=== PATIENT | male | born 1940 | race Caucasian/White ===

== ENCOUNTER 2023-12-16 11:16 | Outpatient (AMB) | payer MEDICARE, OTHER, SELFPAY ==
--- NOTE | 2023-12-16 11:24 | A.OFFVIS_ITS ---
Vital Signs 12/16/23 11:32 Height 5 ft 8 in Weight 184 lb BMI 28.0 BP 124/68 Blood Pressure Location Rt brachial Position Sitting Respiration 16 Pulse 82 Pulse Source Pulse Oximeter Pulse Oximetry (%) 96 Oxygen Delivery Method Room Air Intake Visit Reasons: [id number] Intake Note: Pt presents as new patient for consultation for Parkinson's. Oil Distributor Required: No Allergies levofloxacin [From Levaquin] Allergy (Mild, Verified 12/16/23 11:26) Unknown Penicillins Allergy (Mild, Verified 12/16/23 11:26) Unknown Medication List - Last Reconciled 12/16/23 by Samantha Brothers MD carbidopa-levodopa 25-100 mg 3 tabs PO TID finasteride 5 mg PO DAILY lisinopril 20 mg PO DAILY meclizine 25 mg PO DAILY PRN simvastatin 40 mg PO DAILY HPI Comments Details: 83y/o Right handed male comes for further management of Parkinsons disease. He is accompanied by his daughter Nikki. He was diagnosed in 2020 - when he presented with right hand tremors and coordinations problems. He was seen at [facility] and was diagnosed with patkinsons disease. He was started on carbidopa/levodopa and currently he is on 3tabs tid. The tremors are mostly at rest .He has trouble eating and writing. memory is good. Sleep is ok . he denies nightmares, vivid dreams , REM behavior disorder. His mood is Ok and he is motivated. He has mild voice changes but no drooling . He has mild difficulty with hand writing, using utensils, dressing , needs help with shower. About 3 months ago he had vomiting and was taken to ER - for ileus , transferred to [facility]. the history is not clear - had pneumonia and was intubated. His gait is slow and mildly off balance since then he has home PT and VNA No dizziness , no double vision . He has constipation and mild urgency [facility] Medical History (Updated 12/16/23 @ 12:06 by Samantha Brothers MD) Parkinson's disease without dyskinesia Ileus Back pain BPH (benign prostatic hyperplasia) Diabetes HTN (hypertension) Surgical History H/O knee surgery History of back surgery Family History Father HTN (hypertension) Diabetes mellitus Malignant tumor of prostate Mother Diabetes mellitus, Onset Age: 90 Social History Household Members: Children Housing: House Alcohol intake: never Patient Tobacco Use Status: Never used Tobacco Physical Exam Vital Signs: Last Vital Signs Pulse 82 12/16/23 11:32 Resp 16 12/16/23 11:32 BP 124/68 12/16/23 11:32 Pulse Ox 96 12/16/23 11:32 Oxygen Delivery Method Room Air 12/16/23 11:32 BMI result Body Mass Index 28.0 Const General: cooperative, healthy appearing and no acute distress Nutritional Appearance: obese Orientation/consciousness: patient oriented x3 HEENT Head: Yes normal to inspection Neck Other: mild antecollis and restricted range of motion Neuro Other: Mild decreased blink and facial expression Voice- normal Right UE intermittent mild amplitude rest tremors Fine Finger movement- decreased chilango l>R Alternating hand movements - decreased chilango Hand movements - decreased chilango Foot taps- decreased chilango No cog wheel rigidity gait - stooped, mild slowness and high step gait General: patient oriented x3 and no focal motor deficits Cranial nerves: Yes CN's II-XII intact bilaterally, Yes Bilaterally intact EOM present, Yes Normal facial strength present and Yes Midline tongue present Cognition (Neuro): normal cognition Motor exam (neuro): 5/5 motor strength present throughout and Normal motor muscle tone present throughout Deep tendon reflexes (DTR's): Right triceps reflex intensity grade: 1+, Left triceps reflex intensity grade: 1+, Rt Biceps (C5, C6): 1+, Left biceps reflex intensity grade: 1+, Right brachioradialis reflex intensity grade: 1+, Left brachioradialis reflex intensity grade: 1+, Right patellar reflex intensity grade: 1+ and Left patellar reflex intensity grade: 1+ Coordination: [id number] test normal Assessment & Plan Assessment & Plan (1) Parkinson's disease without dyskinesia: Code(s): G20.A1 - Parkinson's disease without dyskinesia, without mention of fluctuations Category: Medical Plan Discussed diagnosis in detail . Continue sinemet 25/100 3tabs tid ( or 3-2-2-2-) Continue PT OT consider GI for follow up of ileus. Coding Level of Care Code New Pt Level 4 (26297) Diagnoses Parkinson's disease without dyskinesia G20.A1
[2023-12-16 11:32] VITALS: BP 124/68; PULSE 82; RESP 16; O2SAT 96; BMI 28.0
== END 2023-12-16 12:14 | disposition home or self-care (01) ==
PROVIDERS: PCP Family Medicine; Visit Provider Psychiatry & Neurology Neurology
DX: G20.A1 Parkinson's disease without dyskinesia, without mention of fluctuations (principal)
CPT/HCPCS: 99204

== ENCOUNTER → 2023-12-16 11:16 | Outpatient (BNVA) | payer MEDICARE, OTHER, SELFPAY | PROVIDERS: PCP Family Medicine; Visit Provider Psychiatry & Neurology Neurology | DX: G20.A1 Parkinson's disease without dyskinesia, without mention of fluctuations (principal); Z79.899 Other long term (current) drug therapy | CPT/HCPCS: 99202 ==

== ENCOUNTER 2024-11-19 12:43 | Outpatient (AMB) | payer MEDICARE, OTHER, SELFPAY ==
[2024-11-19 12:51] VITALS: BP 150/80; PULSE 86; O2SAT 98; BMI 29.0
--- NOTE | 2024-11-19 12:51 | A.OFFVIS_ITS ---
Vital Signs 11/19/24 12:51 Height 5 ft 8 in Weight 190 lb 8 oz BMI 29.0 BP 150/80 H Blood Pressure Location Rt brachial Position Sitting Pulse 86 Pulse Source Pulse Oximeter Pulse Oximetry (%) 98 Oxygen Delivery Method Room Air Intake Visit Reasons: 6 Month [phone] Intake Note: Patient presents for follows up parkinsons Allergies levofloxacin [From Levaquin] Allergy (Mild, Verified 11/19/24 12:54) Unknown Penicillins Allergy (Mild, Verified 11/19/24 12:54) Unknown Medication List - Last Reconciled 11/19/24 by Samantha Brothers MD carbidopa-levodopa 25-100 mg 3 tabs PO TID finasteride 5 mg PO DAILY lisinopril 20 mg PO DAILY meclizine 25 mg PO DAILY PRN simvastatin 40 mg PO DAILY HPI Comments Details: 84y/o Right handed male comes for follow up of Parkinsons disease. He is accompanied by his daughter Nikki. He feels he is stable only a mild progression of symptoms- slower than before. He was diagnosed in 2020 - when he presented with right hand tremors and coordinations problems. He was seen at [facility] and was diagnosed with patkinsons disease. He is on carbidopa/levodopa 3tabs tid. The tremors are mostly at rest .He has trouble eating and writing at times memory - has some short term difficulties Sleep is ok . he denies nightmares, vivid dreams , REM behavior disorder. His mood is Ok and he is motivated. He has mild voice changes but no drooling . He has mild difficulty with hand writing, using utensils, dressing , shower. - slower No constipation No dizziness , no double vision . No hallucinations He recently had procedure for kidney stones. [facility] Medical History Parkinson's disease without dyskinesia Ileus Back pain BPH (benign prostatic hyperplasia) Diabetes HTN (hypertension) Surgical History H/O knee surgery History of back surgery Family History Father HTN (hypertension) Diabetes mellitus Malignant tumor of prostate Mother Diabetes mellitus, Onset Age: 90 Social History Household Members: Children Housing: House Alcohol intake: never Patient Tobacco Use Status: Never used Tobacco Physical Exam Vital Signs: Last Vital Signs Pulse 86 11/19/24 12:51 BP 150/80 H 11/19/24 12:51 Pulse Ox 98 11/19/24 12:51 Oxygen Delivery Method Room Air 11/19/24 12:51 BMI result Body Mass Index 29.0 Const General: cooperative, healthy appearing and no acute distress Nutritional Appearance: obese Orientation/consciousness: patient oriented x3 HEENT Head: Yes normal to inspection Neck Other: mild antecollis and restricted range of motion Neuro Other: Mild decreased blink and facial expression Voice- normal no tremors today Fine Finger movement- decreased chilango l>R Alternating hand movements - decreased chilango Hand movements - decreased chilango Foot taps- decreased chilango No cog wheel rigidity gait - stooped,walker mild slowness and high step gait ( residual foot droP from back surgery) General: patient oriented x3 and no focal motor deficits Cranial nerves: Yes CN's II-XII intact bilaterally, Yes Bilaterally intact EOM present, Yes Normal facial strength present and Yes Midline tongue present Cognition (Neuro): normal cognition Motor exam (neuro): 5/5 motor strength present throughout and Normal motor muscle tone present throughout Coordination: [id number] test normal Assessment & Plan Assessment & Plan (1) Parkinson's disease without dyskinesia: Code(s): G20.A1 - 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
--- OUTSIDE RECORDS SUMMARY | 2024-11-19 14:38 | XMS_ITS | Encounter Summary ---
Author Organization [facility] Address [address] [place] [address] Care Team Providers Care Custom Feed Mill Operator Name Role Phone Mike Tobin MD Primary Care Provider [phone] Encounter Details Date Type Department Care Team (Late st Contact Info) Description 08/18/2024 Lab Requisition [facility] - Main Lab [address] [place] [address] Say Louie MD [address] [place] [address] Calculus of kidney Social History Tobacco Use Types Packs/Day Years Used Date Smoking Tobacco: Never Assessed Sex and Gender Information Value Date Recorded Sex Assigned at Not on file Legal Sex Male 1:32 PM EDT Gender Identity Not on file Sexual Orientation Not on file documented as of this encounter Plan of Treatment Not on file documented as of this encounter Procedures Procedure Name Priority Date/Time Associated Diagnosis Comments STONE ANALYSIS Routine 08/18/2024 12:00 AM EDT Calculus of kidney documented in this encounter Results * Stone analysis (08/18/2024 12:00 AM EDT) Component(s) See below 08/25/2024 8:07 AM EDT [facility] Comment: 75% Uric acid anhydrous 25% Sodium urate Stone Weight 0.0059 g 08/25/2024 8:07 AM EDT [facility] Comment: This test was developed and its performance characteristics determined by [facility] in a manner consistent with CLIA requirements. This test has not been cleared or approved by the U.S. Food and Drug Administration. Test performed at [facility], [address] , [place], [place] ??[address] ? [phone] Angie Singh MD, PhD - Rivet Tosser Calculus 08/18/2024 08/18/2024 1:3 6 PM EDT us Say Louie MD LAB BODY FLUIDS AND STOOLS ORDER BRETT Final Result [facility] [address] [place] [address] documented in this encounter Visit Diagnoses Diagnosis Calculus of kidney documented in this encounter Care Teams Custom Feed Mill Operator Relationship Specialty Start Date End Date Mike Tobin MD [address] [place] [address] PCP - General Family Medicine 07/29/24 documented as of this encounter
== END 2024-11-19 13:23 | disposition home or self-care (01) ==
LOC: HO.HSMS 12:44
PROVIDERS: Visit Provider Psychiatry & Neurology Neurology
DX: G20.A1 Parkinson's disease without dyskinesia, without mention of fluctuations (principal)
CPT/HCPCS: 99214

== ENCOUNTER → 2024-11-19 12:43 | Outpatient (BNVA) | payer MEDICARE, OTHER, SELFPAY | PROVIDERS: Visit Provider Psychiatry & Neurology Neurology | DX: G20.A1 Parkinson's disease without dyskinesia, without mention of fluctuations (principal) | CPT/HCPCS: 99212 ==

== ENCOUNTER → 2024-12-28 23:59 | Outpatient (BNV) | payer MEDICARE, OTHER, SELFPAY | PROVIDERS: Visit Provider Psychiatry & Neurology Neurology | DX: G20.A1 Parkinson's disease without dyskinesia, without mention of fluctuations (principal); I10 Essential (primary) hypertension; E11.9 Type 2 diabetes mellitus without complications | CPT/HCPCS: G0180 ==

== ENCOUNTER 2025-05-24 12:50 | Outpatient (AMB) | payer MEDICARE, OTHER, SELFPAY ==
[2025-05-24 12:54] VITALS: BP 132/78; PULSE 95; O2SAT 95; BMI 29.8
--- NOTE | 2025-05-24 12:54 | MHC.OFFVIS ---
Vital Signs 05/24/25 12:54 Height 5 ft 8 in Weight 196 lb 2 oz BMI 29.8 BP 132/78 Blood Pressure Location Rt brachial Position Sitting Pulse 95 Pulse Source Pulse Oximeter Pulse Oximetry (%) 95 Oxygen Delivery Method Room Air Intake Visit Reasons: 6 mo follow up Intake Note: Follow up Parkinson's disease without dyskinesia, without mention of fluctuations Casting Molder Required: No Accompanied by: Daughter Allergies levofloxacin (From Levaquin) Allergy (Mild, Verified 05/24/25 12:54) Unknown Penicillins Allergy (Mild, Verified 05/24/25 12:54) Unknown Medication List - Last Reconciled 05/24/25 by Samantha Brothers MD carbidopa-levodopa 25-100 mg 3 tabs PO TID finasteride 5 mg PO DAILY lisinopril 20 mg PO DAILY meclizine 25 mg PO DAILY PRN simvastatin 40 mg PO DAILY HPI Comments Details: 84y/o Right handed male comes for follow up of Parkinsons disease. He is accompanied by his daughter Nikki. He feels he is stable only a mild progression of symptoms- slower than before.No falls No hallucinations.No dizziness. He was diagnosed in 2020 - when he presented with right hand tremors and coordinations problems. He was seen at [facility] and was diagnosed with patkinsons disease. He is on carbidopa/levodopa 3tabs tid. The tremors are mostly at rest .He has trouble eating and writing at times memory - has some short term difficulties Sleep is ok . he denies nightmares, vivid dreams , REM behavior disorder. His mood is Ok and he is motivated. He has mild voice changes but no drooling . He has mild difficulty with hand writing, using utensils, dressing , shower. - slower No constipation PFSH Medical History Parkinson's disease without dyskinesia Ileus Back pain BPH (benign prostatic hyperplasia) Diabetes HTN (hypertension) Surgical History H/O knee surgery History of back surgery Family History Father HTN (hypertension) Diabetes mellitus Malignant tumor of prostate Mother Diabetes mellitus, Onset Age: 90 Social History Household Members: Children Housing: House Alcohol intake: never Patient Tobacco Use Status: Never used Tobacco Physical Exam Vital Signs: Last Vital Signs Pulse 95 05/24/25 12:54 BP 132/78 05/24/25 12:54 Pulse Ox 95 05/24/25 12:54 Oxygen Delivery Method Room Air 05/24/25 12:54 BMI result Body Mass Index 29.8 Const General: cooperative, healthy appearing and no acute distress Nutritional Appearance: obese Orientation/consciousness: patient oriented x3 HEENT Head: Yes normal to inspection Neck Other: mild antecollis and restricted range of motion Neuro Other: Mild decreased blink and facial expression Voice- normal no tremors today Fine Finger movement- decreased chilango l>R Alternating hand movements - decreased chilango Hand movements - decreased chilango Foot taps- decreased chilango No cog wheel rigidity gait - stooped,walker mild slowness and high step gait ( residual foot droP from back surgery) General: patient oriented x3 and no focal motor deficits Cranial nerves: Yes CN's II-XII intact bilaterally, Yes Bilaterally intact EOM present, Yes Normal facial strength present and Yes Midline tongue present Cognition (Neuro): normal cognition Motor exam (neuro): 5/5 motor strength present throughout and Normal motor muscle tone present throughout Coordination: [id number] test normal Assessment & Plan Assessment & Plan (1) Parkinson's disease without dyskinesia: Code(s): G20.A1 - 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 Continue sinemet 25/100 3tabs tid continue regular exercise Medications: New carbidopa-levodopa 25-100 mg 3 tabs PO TID 810 tabs 3RF Coding Level of Care Code Est Pt Level 4 (31736) Add On Problem Visit Only Diagnoses Parkinson's disease without dyskinesia or fluctuating manifestations G20.A1 Fluctuating manifestations: without fluctuating manifestations
--- OUTSIDE RECORDS SUMMARY | 2025-05-24 18:30 | XMS_ITS | Encounter Summary ---
Author Organization [facility] Address [address] [place] [phone] Phone Care Team Providers Care Desk Operator Name Role Phone Mike Tobin MD, MPH Primary Care Provider + Mike Tobin MD, MPH Primary Care Provider + Encounter Details Date Type Department Care Team (Late st Contact Info) Description 10/02/2023 Procedure Pass [facility] Admitting Dept Virtual Department [address] [place] [address] Social History Tobacco Use Types Packs/Day Years Used Date Smoking Tobacco: Never Smokeless Tobacco: Never Alcohol Use Standard Drinks/Week Comments Not Currently 2 (1 standard drink = 0.6 oz pur e alcohol) rarely Education Answer Date Recorded Are you interested in more education? Not on hamida e 10/05/2022 Are you concerned about learning? Not on file 10/05/2022 No 10/05/2022 No 10/05/2022 Digital Access Answer Date Recorded No 11/04/2022 No 11/04/2022 Reliable internet access at home? Not on file 11/04/2022 Device with a working camera? Not on file Intimate Partner Violence Answer Date R ecorded Are you denied basic needs s uch as food, clothing, or medical care? Deferred 10/03/2023 In the past 12 months have y ou been in a relationship with a person who hurts, threatens, or tries to control you? Deferred 10/03/2023 Are you denied basic needs s uch as food, clothing, or medical care? Deferred 10/03/2023 In the past 12 months have y ou been in a relationship with a person who hurts, threatens, or tries to control you? Deferred 10/03/2023 Sex and Gender Information Value Date Recorded Sex Assigned at Male 12/23/2017 11:35 AM EDT Legal Sex Male 4:33 PM EDT Gender Identity Male 12/23/2017 11:35 AM EDT Sexual Orientation Straight 02/22/2022 6: 03 PM EDT documented as of this encounter Functional Status * Calculated C-SSRS Risk Score (Lifetime/Recent) Answer Date of Assessment Author No Risk Indicated 10/04/2023 8:00 PM EDT Magali Shen RN * Moody Suicide Severity Rating Scale (Screener/Recent Self-Report) Question Answer Date of Assessment Author 1. Wish to be (Past 1 Month) No 10/04/2023 8:00 PM EDT Cornell Mcdonald RN 2. Non-Specific Active Suicidal Thoughts (Past 1 Month) No 10/04/2023 8:00 PM EDT Cornell Mcdonald RN 6. Suicidal Behavior (Lifetime) No 10/04/2023 8:00 PM EDT Cornell Mcdonald RN documented as of this encounter Plan of Treatment Not on file documented as of this encounter Visit Diagnoses Not on filedocumented in this encounter Care Teams Desk Operator Relationship Specialty Start Date End Date Mike Tobin MD, MPH [address] [place] [address] [email or web address] PCP - General Family Medicine 04/21/21 07/07/24 Mike Tobin MD, MPH [address] [place] [address] [email or web address] PCP - General Family Medicine 07/08/24 documented as of this encounter Additional Source Comments The information contained in this document represents components of the legal health record. It is not the complete legal health record.[facility]
--- OUTSIDE RECORDS SUMMARY | 2025-05-24 18:30 | XMS_ITS | Encounter Summary ---
Author Organization [facility] Address [address] [facility] [address] [place] [phone] Phone Care Team Providers Care Twister Frame Tender Name Role Phone Mike Tobin MD, MPH Primary Care Provider + Mike Tobin MD, MPH Primary Care Provider + Encounter Details Date Type Department Care Team (Late st Contact Info) Description 09/15/2023 Procedure Pass [facility], Ct Scan - [address] [address] Social History Tobacco Use Types Packs/Day Years [...] with a working camera? Not on file Sex and Gender Information Value Date Recorded Sex Assigned at Male 12/23/2017 11:35 AM EDT Legal Sex Male 4:33 PM EDT Gender Identity Male 12/23/2017 11:35 AM EDT Sexual Orientation Straight 02/22/2022 6: 03 PM EDT documented as of this encounter Functional Status * Calculated C-SSRS Risk Score (Lifetime/Recent) Answer Date of Assessment Author No Risk Indicated 09/15/2023 10:00 PM EDT Aleida Rehman RN * Mason Suicide Severity Rating Scale (Screener/Recent Self-Report) Question Answer Date of Assessment Author 1. Wish to be (Past 1 Month) No 09/15/2023 10:00 PM EDT Aleida Burton RN 2. Non-Specific Active Suici suzie Thoughts (Past 1 Month) No 09/15/2023 10:00 PM EDT Donnie Burton RN 6. Suicidal Behavior (Lifetime) No 10:00 PM EDT Aleida Burton RN documented as of this encounter Plan of Treatment Not on file documented as of this encounter Visit Diagnoses Not on filedocumented in this encounter Care Teams Twister Frame Tender Relationship Specialty Start Date End Date Mike Tobin MD, MPH [address] [place] [address] [email or web address] PCP - General Family Medicine 04/21/21 07/07/24 Mike Tobin MD, MPH [address] [place] [address] [email or web address] PCP - General Family Medicine 07/08/24 documented as of this encounter Additional Source Comments The information contained in this document represents components of the legal health record. It is not the complete legal health record.[facility]
--- OUTSIDE RECORDS SUMMARY | 2025-05-24 18:30 | XMS_ITS | Encounter Summary ---
Author Organization [facility] Address [address] [place] [address] Phone Care Team Providers Care Plumbing Assembler Installer Name Role Phone Mike Tobin MD, MPH Primary Care Provider + Mike Tobin MD, MPH Primary Care Provider + Encounter Details Date Type Department Care Team (Late st Contact Info) Description 09/17/2023 Procedure Pass [facility], Ct Scan - [address] [address] Social History Tobacco Use Types Packs/Day Years [...] PM EDT documented as of this encounter Plan of Treatment Not on file documented as of this encounter Visit Diagnoses Not on filedocumented in this encounter Care Teams Plumbing Assembler Installer Relationship Specialty Start Date End Date Mike Tobin MD, MPH [address] [place] [address] [email or web address] PCP - General Family Medicine 04/21/21 07/07/24 Mike Tobin MD, MPH [address] [place] [address] [email or web address] PCP - General Family Medicine 07/08/24 documented as of this encounter Additional Source Comments The information contained in this document represents components of the legal health record. It is not the complete legal health record.[facility]
--- OUTSIDE RECORDS SUMMARY | 2025-05-24 18:30 | XMS_ITS | Encounter Summary ---
Author Organization [facility] Address [address] [facility] [address] [place] [address] Phone Care Team Providers Care Capping Machine Operator Name Role Phone Mike Tobin MD, MPH Primary Care Provider + Mike Tobin MD, MPH Primary Care Provider + Encounter Details Date Type Department Care Team (Late st Contact Info) Description 04/19/2022 Procedure Pass [facility] Admitting Dept Virtual Department [address] [place] [address] Social History Tobacco Use Types Packs/Day Years Used Date Smoking Tobacco: Never Smokeless Tobacco: Never Alcohol Use Standard Drinks/Week Comments Not Currently 2 (1 standard drink = 0.6 oz pur e alcohol) rarely Sex and Gender Information Value Date Recorded Sex Assigned at Male 12/23/2017 11:35 AM EDT Legal Sex Male 4:33 PM EDT Gender Identity Male 12/23/2017 11:35 AM EDT Sexual Orientation Straight 02/22/2022 6: 03 PM EDT documented as of this encounter Plan of Treatment Not on file documented as of this encounter Visit Diagnoses Not on filedocumented in this encounter Care Teams Capping Machine Operator Relationship Specialty Start Date End Date Mike Tobin MD, MPH [address] [place] [address] PCP - General Family Medicine 04/21/21 07/07/24 Mike Tobin MD, MPH [address] [place] [id number] [email or web address] PCP - General Family Medicine 07/08/24 documented as of this encounter Additional Source Comments The information contained in this document represents components of the legal health record. It is not the complete legal health record.[facility]
--- OUTSIDE RECORDS SUMMARY | 2025-05-24 18:30 | XMS_ITS | Encounter Summary ---
Author Organization [facility] Address [address] [facility] [address] [place] [phone] Phone Care Team Providers Care Business Rules Developer Name Role Phone Mike Tobin MD, MPH Primary Care Provider + Mike Tobin MD, MPH Primary Care Provider + Mike Tobin MD, MPH Primary Care Provider + Mike Tobin MD, MPH Primary Care Provider + Encounter Details Date Type Department Care Team (Late st Contact Info) Description 10/06/2015 Transcribe Orders [facility] EKG [address] [place] [address] [email or web address] Pre-op exam Social History Tobacco Use Types Packs/Day Years Used Date Smoking Tobacco: Never Alcohol Use Standard Drinks/Week Comments Yes 1 (1 standard drink = 0.6 oz pur e alcohol) Sex and Gender Information Value Date Recorded Sex Assigned at Male 12/23/2017 11:35 AM EDT Legal Sex Male 4:33 PM EDT Gender Identity Male 12/23/2017 11:35 AM EDT Sexual Orientation Straight 02/22/2022 6: 03 PM EDT documented as of this encounter Plan of Treatment Not on file documented as of this encounter Procedures Procedure Name Priority Date/Time Associated Diagnosis Comments ECG 12-LEAD Routine 10/05/2015 4:40 PM EDT Pre-op exam documented in this encounter Results * ECG 12 lead (10/05/2015 4:40 PM EDT) Ventricular Rate EKG/MIN 78 BPM [facility] Atrial Rate 78 BPM [facility] NM Interval 156 ms [facility] QRS Duration 100 ms [facility] QT Interval 398 ms [facility] QTC Interval 453 ms [facility] P [place] 62 degrees [facility] R Wave [place] 88 degrees [facility] T Wave [place] 30 degrees [facility] 10/05/2015 4:40 PM EDT Narrative [facility] - 10/06/2015 9:53 PM EDT Poor data quality, interpretation may be adversely affected Normal sinus rhythm Cannot rule out Inferior myocardial infarction No previous ECGs available Franklyn Rouse MD ECG ORDERABLES Final Result [facility] documented in this encounter Visit Diagnoses Diagnosis Pre-op exam documented in this encounter Additional Health Concerns Infection Onset Date Last Indicated Resolved Time CoV-Risk 05/29/2021 05/29/2021 06/08/2021 1:23 AM EST documented as of this encounter Care Teams Business Rules Developer Relationship Specialty Start Date End Date Mike Tobin MD, MPH [address] [place] [address] [email or web address] PCP - General Family Medicine 09/12/15 05/17/19 Mike Tobin MD, MPH [address] [place] [address] [email or web address] PCP - General Family Medicine 05/18/19 04/20/21 Mike Tobin MD, MPH [address] [place] [address] [email or web address] PCP - General Family Medicine 04/21/21 07/07/24 Mike Tobin MD, MPH [address] [place] [phone] [email or web address] PCP - General Family Medicine 07/08/24 documented as of this encounter Additional Source Comments The information contained in this document represents components of the legal health record. It is not the complete legal health record.[facility]
--- OUTSIDE RECORDS SUMMARY | 2025-05-24 18:30 | XMS_ITS | Encounter Summary ---
Author Organization [facility] Address [address] [facility] [address] [place] [address] Phone Care Team Providers Care Imaging Account Manager Name Role Phone Mike Tobin MD, MPH Primary Care Provider + Mike Tobin MD, MPH Primary Care Provider + Encounter Details Date Type Department Care Team (Late st Contact Info) Description 09/16/2023 Procedure Pass [facility] Endoscopy Admitting Dept Virtual Department [address] [place] [address] Social History Tobacco Use Types Packs/Day Years [...] on filedocumented in this encounter Care Teams Imaging Account Manager Relationship Specialty Start Date End Date Mike Tobin MD, MPH [address] [place] [address] [email or web address] PCP - General Family Medicine 04/21/21 07/07/24 Mike Tobin MD, MPH [address] [place] [address] [email or web address] PCP - General Family Medicine 07/08/24 documented as of this encounter Additional Source Comments The information contained in this document represents components of the legal health record. It is not the complete legal health record.[facility]
--- OUTSIDE RECORDS SUMMARY | 2025-05-24 18:30 | XMS_ITS | Encounter Summary ---
Author Organization [facility] Address [address] [facility] [address] [place] [address] Phone Care Team Providers Care Community Development Officer Name Role Phone Mike Tobin MD, MPH Primary Care Provider + Mike Tobin MD, MPH Primary Care Provider + Encounter Details Date Type Department Care Team (Late st Contact Info) Description 10/02/2023 Procedure Pass [facility], Ct Scan - [address] [address] Social History Tobacco Use Types Packs/Day Years [...] 8:00 PM EDT Magali Shen RN * Benedict Suicide Severity Rating Scale (Screener/Recent Self-Report) Question [...] on filedocumented in this encounter Care Teams Community Development Officer Relationship Specialty Start Date End Date Mike Tobin MD, MPH [address] [place] [address] [email or web address] PCP - General Family Medicine 04/21/21 07/07/24 Mike Tobin MD, MPH [address] [place] [address] [email or web address] PCP - General Family Medicine 07/08/24 documented as of this encounter Additional Source Comments The information contained in this document represents components of the legal health record. It is not the complete legal health record.[facility]
--- OUTSIDE RECORDS SUMMARY | 2025-05-24 18:30 | XMS_ITS | Encounter Summary ---
Author Organization [facility] Address [address] [place] [address] Phone Care Team Providers Care Pattern Fitter Name Role Phone Mike Tobin MD, MPH Primary Care Provider + Mike Tobin MD, MPH Primary Care Provider + Encounter Details Date Type Department Care Team (Late st Contact Info) Description 09/17/2023 Procedure Pass [facility] Echo Lab [address] [place] [address] Social History Tobacco Use Types Packs/Day Years [...] on filedocumented in this encounter Care Teams Pattern Fitter Relationship Specialty Start Date End Date Mike Tobin MD, MPH [address] [place] [address] [email or web address] PCP - General Family Medicine 04/21/21 07/07/24 Mike Tobin MD, MPH [address] [place] [address] [email or web address] PCP - General Family Medicine 07/08/24 documented as of this encounter Additional Source Comments The information contained in this document represents components of the legal health record. It is not the complete legal health record.[facility]
--- OUTSIDE RECORDS SUMMARY | 2025-05-24 18:30 | XMS_ITS | Encounter Summary ---
Author Organization [facility] Address [address] [facility] [address] [place] [address] Phone Care Team Providers Care Lugger Name Role Phone Mike Tobin MD, MPH Primary Care Provider + Mike Tobin MD, MPH Primary Care Provider + Encounter Details Date Type Department Care Team (Late st Contact Info) Description 09/26/2023 Procedure Pass [facility], Ct Scan - [address] [address] Social History Tobacco Use Types Packs/Day Years [...] on filedocumented in this encounter Care Teams Lugger Relationship Specialty Start Date End Date Mike Tobin MD, MPH [address] [place] [address] [email or web address] PCP - General Family Medicine 04/21/21 07/07/24 Mike Tobin MD, MPH [address] [place] [address] [email or web address] PCP - General Family Medicine 07/08/24 documented as of this encounter Additional Source Comments The information contained in this document represents components of the legal health record. It is not the complete legal health record.[facility]
--- OUTSIDE RECORDS SUMMARY | 2025-05-24 18:30 | XMS_ITS | Encounter Summary ---
Author Organization [facility] Address [address] [facility] [address] [place] [address] Phone Care Team Providers Care Top Ironer Name Role Phone Mike Tobin MD, MPH Primary Care Provider + Mike Tobin MD, MPH Primary Care Provider + Encounter Details Date Type Department Care Team (Late st Contact Info) Description 09/17/2023 Procedure Pass [facility], Ct Scan - [address] [address] Social History Tobacco Use Types Packs/Day Years [...] on filedocumented in this encounter Care Teams Top Ironer Relationship Specialty Start Date End Date Mike Tobin MD, MPH [address] [place] [address] [email or web address] PCP - General Family Medicine 04/21/21 07/07/24 Mike Tobin MD, MPH [address] [place] [address] [email or web address] PCP - General Family Medicine 07/08/24 documented as of this encounter Additional Source Comments The information contained in this document represents components of the legal health record. It is not the complete legal health record.[facility]
--- OUTSIDE RECORDS SUMMARY | 2025-05-24 18:30 | XMS_ITS | Encounter Summary ---
Author Organization [facility] Address [address] [facility] [address] [place] [address] Phone Care Team Providers Care Generation Engineer Name Role Phone Mike Tobin MD, MPH Primary Care Provider + Mike Tobin MD, MPH Primary Care Provider + Encounter Details Date Type Department Care Team (Late st Contact Info) Description 10/03/2023 Procedure Pass [facility]O DEPT [address] [facility], 4th [place] [address] Social History Tobacco Use Types Packs/Day Years [...] 8:00 PM EDT Magali Shen RN * [place] Suicide Severity Rating Scale (Screener/Recent Self-Report) Question [...] on filedocumented in this encounter Care Teams Generation Engineer Relationship Specialty Start Date End Date Mike Tobin MD, MPH [address] [place] [address] [email or web address] PCP - General Family Medicine 04/21/21 07/07/24 Mike Tobin MD, MPH [address] [place] [address] [email or web address] PCP - General Family Medicine 07/08/24 documented as of this encounter Additional Source Comments The information contained in this document represents components of the legal health record. It is not the complete legal health record.[facility]
--- OUTSIDE RECORDS SUMMARY | 2025-05-24 18:31 | XMS_ITS | Encounter Summary ---
Author Organization [facility] Address [address] [employer] [facility] [address] [place] [address] Phone Care Team Providers Care Plant Tour Guide Name Role Phone Mike Tobin MD, MPH Primary Care Provider + Mike Tobin MD, MPH Primary Care Provider + Mike Tobin MD, MPH Primary Care Provider + Encounter Details Date Type Department Care Team (Latest Contact Info) Description 03/07/2020 Transcribe Orders Virtual Department [address] [place] [address] [place], [place] [address] [phone] [email or web address] Calculus of kidney (Primary Dx) Social History Tobacco Use Types Packs/Day Years [...] on file documented as of this encounter Results * US Kidneys (04/01/2020 4:34 PM EDT) Anatomical Region Laterality Modality Abdomen, Kidney Ultrasound 04/01/2020 5:56 PM EDT Impressions 04/01/2020 6:07 PM EDT 1. No evidence of obstructive uropathy. Stable 7 mm non-obstructing calculus in the interpolar region of the right kidney. 2 small non-obstructing calculi within the left kidney. 2. Mild increase in size of a large exophytic cyst with a thin septation in the upper pole of the right kidney. 3. No other significant changes from 07/27/2019. Narrative 04/01/2020 6:07 PM EDT HISTORY: HISTORY of renal calculi, follow-up previous abnormal exam. COMPARISON: Ultrasound kidneys 07/27/2019 FINDINGS: Right kidney: The kidney measures 10.9 cm in long axis similar to the previous exam. The exophytic cyst with a thin septation in the upper pole of the kidney measures 9.2 cm x 6.5 cm x 5.7 cm (compared with 7.3 cm x 5.6 cm x 5.4 cm on 07/27/2019. Anechoic cortical cyst in the interpolar region measuring 1.9 cm in maximal diameter is stable or minimally larger. No evidence of solid masses. There is a 7 mm echogenic shadowing focus in the interpolar region which appears stable. No pelvocaliectasis. No other significant changes. Left kidney: The kidney measures 11.9 cm in the long axis similar to the previous exam. 2 mm echogenic focus in the interpolar region of the kidney consistent with a calculus. 3 mm echogenic focus in the lower pole consistent with a calculus is in the region of where previous calculus was demonstrated on although it appears smaller. No pelvocaliectasis. No evidence of solid masses. Procedure Note Wilber Steele MD - 04/01/2020 HISTORY: HISTORY of renal calculi, follow-up previous abnormal exam. COMPARISON: Ultrasound kidneys 07/27/2019 FINDINGS: Right kidney: The kidney measures 10.9 cm in long axis similar to theprevious exam. The exophytic cyst with a thin septation in the upper poleof the kidney measures 9.2 cm x 6.5 cm x 5.7 cm (compared with 7.3 cm x5.6 cm x 5.4 cm on 07/27/2019. Anechoic cortical cyst in the interpolarregion measuring 1.9 cm in maximal diameter is stable or minimally larger.No evidence of solid masses. There is a 7 mm echogenic shadowing focus inthe interpolar region which appears stable. No pelvocaliectasis. No othersignificant changes. Left kidney: The kidney measures 11.9 cm in the long axis similar to theprevious exam. 2 mm echogenic focus in the interpolar region of the kidneyconsistent with a calculus. 3 mm echogenic focus in the lower poleconsistent with a calculus is in the region of where previous calculus wasdemonstrated on although it appears smaller. No pelvocaliectasis.No evidence of solid masses. IMPRESSION: 1. No evidence of obstructive uropathy. Stable 7 mm non-obstructingcalculus in the interpolar region of the right kidney. 2 smallnon-obstructing calculi within the left kidney. 2. Mild increase in size of a large exophytic cyst with a thin septationin the upper pole of the right kidney. 3. No other significant changes from 07/27/2019. [place] [facility] Final Resu lt documented in this encounter Visit Diagnoses Diagnosis Calculus of kidney- Primary Calculus of kidney documented in this encounter Additional Health Concerns Infection Onset Date Last Indicated Resolved Time CoV-Risk 05/29/2021 05/29/2021 06/08/2021 1:23 AM EST documented as of this encounter Care Teams Plant Tour Guide Relationship Specialty Start Date End Date Mike Tobin MD, MPH [address] [place] [address] [email or web address] PCP - General Family Medicine 05/18/19 04/20/21 Mike Tobin MD, MPH [address] [place] [address] [email or web address] PCP - General Family Medicine 04/21/21 07/07/24 Mike Tobin MD, MPH [address] [place] [address] [email or web address] PCP - General Family Medicine 07/08/24 documented as of this encounter Additional Source Comments The information contained in this document represents components of the legal health record. It is not the complete legal health record.[facility]
--- OUTSIDE RECORDS SUMMARY | 2025-05-24 18:31 | XMS_ITS | Encounter Summary ---
Author Organization [facility] Address [address] [facility] [address] [place] [address] Phone Care Team Providers Care Preschool Lead Teacher Name Role Phone Mike Tobin MD, MPH Primary Care Provider + Mike Tobin MD, MPH Primary Care Provider + Encounter Details Date Type Department Care Team (Late st Contact Info) Description 10/10/2023 Procedure Pass [facility] ENDO DEPT [address] [facility], 4th [place] [address] Social History Tobacco Use Types Packs/Day Years [...] on filedocumented in this encounter Care Teams Preschool Lead Teacher Relationship Specialty Start Date End Date Mike Tobin MD, MPH [address] [place] [address] [email or web address] PCP - General Family Medicine 04/21/21 07/07/24 Mike Tobin MD, MPH [address] [place] [address] [email or web address] PCP - General Family Medicine 07/08/24 documented as of this encounter Additional Source Comments The information contained in this document represents components of the legal health record. It is not the complete legal health record.[facility]
--- OUTSIDE RECORDS SUMMARY | 2025-05-24 18:31 | XMS_ITS | Encounter Summary ---
Author Organization [facility] Address [address] [place] [address] Phone Care Team Providers Care Risk And Insurance Consultant Name Role Phone Mike Tobin MD, MPH Primary Care Provider + Mike Tobin MD, MPH Primary Care Provider + Encounter Details Date Type Department Care Team (Late st Contact Info) Description 10/10/2023 Procedure Pass [facility] Holter Lab [address] [facility] 5th [address], [address] [place] [address] Social History Tobacco Use Types Packs/Day Years [...] on filedocumented in this encounter Care Teams Risk And Insurance Consultant Relationship Specialty Start Date End Date Mike Tobin MD, MPH [address] [place] [address] [email or web address] PCP - General Family Medicine 04/21/21 07/07/24 Mike Tobin MD, MPH [address] [place] [address] [email or web address] PCP - General Family Medicine 07/08/24 documented as of this encounter Additional Source Comments The information contained in this document represents components of the legal health record. It is not the complete legal health record.[facility]
--- OUTSIDE RECORDS SUMMARY | 2025-05-24 18:31 | XMS_ITS | Encounter Summary ---
Author Organization [facility] Address [address] [facility] [address] [place] [address] Phone Care Team Providers Care Houseperson Name Role Phone Mkie Tobin MD, MPH Primary Care Provider + Mike Tobin MD, MPH Primary Care Provider + Mike Tobin MD, MPH Primary Care Provider + Mike Tobin MD, MPH Primary Care Provider + Encounter Details Date Type Department Care Team (Late st Contact Info) Description 05/22/2017 Ancillary Orders Virtual Department [address] [place] [address] Hari Freed MD [address] [place] [address], [place] [address] History of BPH; Kidney stone; Incomplete emptying of bladder Social History Tobacco Use Types Packs/Day Years [...] documented as of this encounter Results * XR ABDOMEN 1 VIEW (07/10/2017 9:28 AM EST) Anatomical Region Laterality Modality Abdomen Radiographic Lynette ging 07/10/2017 10:1 4 AM EST Impressions 07/10/2017 10:20 AM EST Findings consistent with an 8 mm radiopaque calculus in the interpolar region of the right kidney. Questionable more faint 7 mm calculus in the region of the right renal pelvis. No other findings suspicious for radiopaque urinary tract calculi. POS - [id number] Narrative 07/10/2017 10:20 AM EST HISTORY: Pain, urinary tract calculi. COMPARISON: Abdominal x-rays 02/27/[address] abdomen/pelvis 07/26/2014. FINDINGS: AP supine views. There is an oval calcification overlying the mid central right renal silhouette which measures 8mm in maximal diameter consistent with a calculus. Slightly more inferomedial on one of two views is a faint density measuring approximately 7 mm in maximal diameter. No other suspicious calcifications in the abdomen or pelvis. Scattered air and stool within the colon. No marked bowel distention. No appreciable change in fusion hardware within the lumbosacral spine. Similar degenerative changes at the hips, more so on left than right. Procedure Note Wilber Younger MD - 07/10/2017 HISTORY: Pain, urinary tract calculi. COMPARISON: Abdominal x-rays 02/27/[address] abdomen/pelvis 07/26/2014. FINDINGS: AP supine views. There is an oval calcification overlying the mid central right renalsilhouette which measures 8mm in maximal diameter consistent with acalculus. Slightly more inferomedial on one of two views is a faintdensity measuring approximately 7 mm in maximal diameter. No othersuspicious calcifications in the abdomen or pelvis. Scattered air and stool within the colon. No marked bowel distention. Noappreciable change in fusion hardware within the lumbosacral spine.Similar degenerative changes at the hips, more so on left than right. IMPRESSION: Findings consistent with an 8 mm radiopaque calculus in the interpolarregion of the right kidney. Questionable more faint 7 mm calculus in theregion of the right renal pelvis. No other findings suspicious forradiopaque urinary tract calculi. POS - [id number] us Hari Freed MD IMG XR ABDOMEN Final Result * US Kidneys and Bladder (07/10/2017 9:23 AM EST) Anatomical Region Laterality Modality Abdomen, Kidney Ultrasound 07/10/2017 11:3 4 AM EST Impressions 07/10/2017 11:48 AM EST Bilateral non-obstructing nephrolithiasis with a single stone in each kidney. No significant change in a Bosniak 2 cyst on the right. Urinary retention again noted with 31% post void residual bladder volume. POS - [id number] Narrative 07/10/2017 11:48 AM EST COMPARISON: 12/17/2016, abdominal CT 07/26/2014 FINDINGS: Kidneys are within normal limits for size measuring 11.4 x 5.7 cm on the right and 12.5 x 5.8 cm on the left. Cortical thickness and echogenicity are within normal limits. On the right, no significant change in a large cyst versus 2 adjacent cysts with an echogenic thin septation which corresponds with calcifications on the CT. In total, the lesion measures 6.0 x 5.8 x 4.9 cm. There is a 1.6 cm cyst in the mid kidney. 7 mm shadowing echogenic structure in the mid kidney is not significantly changed and is compatible with a renal stone. The previously seen 2 mm stone is not visualized. On the left, the previous upper pole cyst is not visualized. The 4-5 mm shadowing echogenic structure compatible with a stone in the lower pole is not significantly changed allowing for normal variant in measurement. Prevoid bladder volume measures 164 cc and post void measures 61 cc for a 31% post void residual bladder volume. Previously, the post void residual bladder volume was 47%. No evidence of an intraluminal mass or stone. No focal bladder wall thickening. Both ureteral jets are visualized. Enlarged prostate gland which protrudes into the bladder base. Procedure Note Shawn Trevizo MD - 07/10/2017 COMPARISON: 12/17/2016, abdominal CT 07/26/2014 FINDINGS: Kidneys are within normal limits for size measuring 11.4 x 5.7 cm on theright and 12.5 x 5.8 cm on the left. Cortical thickness and echogenicityare within normal limits. On the right, no significant change in a large cyst versus 2 adjacentcysts with an echogenic thin septation which corresponds withcalcifications on the CT. In total, the lesion measures 6.0 x 5.8 x 4.9cm. There is a 1.6 cm cyst in the mid kidney. 7 mm shadowing echogenicstructure in the mid kidney is not significantly changed and is compatiblewith a renal stone. The previously seen 2 mm stone is not visualized. On the left, the previous upper pole cyst is not visualized. The 4-5 mmshadowing echogenic structure compatible with a stone in the lower pole isnot significantly changed allowing for normal variant in measurement. Prevoid bladder volume measures 164 cc and post void measures 61 cc for a31% post void residual bladder volume. Previously, the post void residualbladder volume was 47%. No evidence of an intraluminal mass or stone. Nofocal bladder wall thickening. Both ureteral jets are visualized.Enlarged prostate gland which protrudes into the bladder base. IMPRESSION: Bilateral non-obstructing nephrolithiasis with a single stone in eachkidney. No significant change in a Bosniak 2 cyst on the right. Urinary retention again noted with 31% post void residual bladdervolume. POS - [id number] Hari Freed MD [facility] Final Result documented in this encounter Visit Diagnoses Diagnosis History of BPH Kidney stone Calculus of kidney Incomplete emptying of bladder Incomplete bladder emptying History of BPH Kidney stone Calculus of kidney Incomplete emptying of bladder Incomplete bladder emptying History of BPH Kidney stone Calculus of kidney Incomplete emptying of bladder Incomplete bladder emptying documented in this encounter Additional Health Concerns Infection Onset Date Last Indicated Resolved Time CoV-Risk 05/29/2021 05/29/2021 06/08/2021 1:23 AM EST documented as of this encounter Care Teams Houseperson Relationship Specialty Start Date End Date Mike Tobin MD, MPH [address] [place] [address] [email or web address] PCP - General Family Medicine 09/12/15 05/17/19 Mike Tobin MD, MPH [address] [place] [address] [email or web address] PCP - General Family Medicine 05/18/19 04/20/21 Mike Tobin MD, MPH [address] [place] [address] [email or web address] PCP - General Family Medicine 04/21/21 07/07/24 Mike Tobin MD, MPH [address] [place] [address] [email or web address] PCP - General Family Medicine 07/08/24 documented as of this encounter Additional Source Comments The information contained in this document represents components of the legal health record. It is not the complete legal health record.[facility]
--- OUTSIDE RECORDS SUMMARY | 2025-05-24 18:31 | XMS_ITS | Encounter Summary ---
Author Organization [facility] Address [address] [place] [address] Phone Care Team Providers Care Electrical Superintendent Name Role Phone Mike Tobin MD, MPH Primary Care Provider + Mike Tobin MD, MPH Primary Care Provider + Mike Tobin MD, MPH Primary Care Provider + Mike Tobin MD, MPH Primary Care Provider + Reason for Referral * Physical Therapy (Routine) - Closed Specialty Diagnoses / Procedures Referred By Graciela hernandez Referred To Contact Physical Therapy Diagnoses Encounter for rehabilitation Left Knee DOS 04/15/18 Procedures Evaluate & Treat System, Provider Not In, PhD [id number] [place] [address] Phone: tel: Referral ID Status Reason Start Date Expiration Date Visits Re quested Visits Authorized [id number] Closed 05/09/2018 06/09/2019 99 [phone] Encounter Details Date Type Department Care Team (Latest Contact Info) Description 05/09/2018 Transcribe Orders [facility] [address] [place] [address] Italo Frost MD [address] [place] [address] Encounter for rehabilitation (Primary Dx) Social History Tobacco Use Types [...] Procedure Name Priority Date/Time Associated Diagnosis Comments AMB REFERRAL TO [facility] PHYSICAL THERAPY Routine 05/13/2018 5:15 PM EST Encounter for rehabilitation documented in this encounter Results * Ambulatory referral to [facility] Physical Therapy (05/13/2018 5:15 PM EST) us Provider Not In System PhD AMB [facility] REFERRALS Fin al Result documented in this encounter Visit Diagnoses Diagnosis Encounter for rehabilitation- Primary documented in this encounter Additional Health Concerns Infection Onset Date Last Indicated Resolved Time CoV-Risk 05/29/2021 05/29/2021 06/08/2021 1:23 AM EST documented as of this encounter Care Teams Electrical Superintendent Relationship Specialty Start Date End Date Mike Tobin MD, MPH [address] [place] [phone] [email or web address] PCP - General Family Medicine 09/12/15 05/17/19 Mike Tobin MD, MPH [address] [place] [phone] [email or web address] PCP - General Family Medicine 05/18/19 04/20/21 Mike Tobin MD, MPH [address] [place] [address] [email or web address] PCP - General Family Medicine 04/21/21 07/07/24 Mike Tobin MD, MPH [address] [place] [address] [email or web address] PCP - General Family Medicine 07/08/24 documented as of this encounter Additional Source Comments The information contained in this document represents components of the legal health record. It is not the complete legal health record.[facility]
--- OUTSIDE RECORDS SUMMARY | 2025-05-24 18:31 | XMS_ITS | Encounter Summary ---
Author Organization [facility] Address [address] [facility] [address] [place] [address] Phone Care Team Providers Care Pattern Marking Supervisor Name Role Phone Mike Tobin MD, MPH Primary Care Provider + Mike Tobin MD, MPH Primary Care Provider + Mike Tobin MD, MPH Primary Care Provider + Mike Tobin MD, MPH Primary Care Provider + Encounter Details Date Type Department Care Team (Late st Contact Info) Description 10/01/2017 Procedure Pass [facility], Ct Scan - [address] [address] Social History Tobacco Use Types Packs/Day Years [...] Diagnoses Not on filedocumented in this encounter Additional Health Concerns Infection Onset Date Last Indicated Resolved Time CoV-Risk 05/29/2021 05/29/2021 06/08/2021 1:23 AM EST documented as of this encounter Care Teams Pattern Marking Supervisor Relationship Specialty Start Date End Date Mike Tobin MD, MPH [address] [place] [address] [email or web address] PCP - General Family Medicine 09/12/15 05/17/19 Mike Tobin MD, MPH [address] [place] [address] [email or web address] PCP - General Family Medicine 05/18/19 04/20/21 Mike Tobin MD, MPH [address] [place] [address] [email or web address] PCP - General Family Medicine 04/21/21 07/07/24 Mike Tobni MD, MPH [address] [place] [address] [email or web address] PCP - General Family Medicine 07/08/24 documented as of this encounter Additional Source Comments The information contained in this document represents components of the legal health record. It is not the complete legal health record.[facility]
--- OUTSIDE RECORDS SUMMARY | 2025-05-24 18:31 | XMS_ITS | Encounter Summary ---
Author Organization [facility] Address [address] [facility] [address] [place] [address] Phone Care Team Providers Care Electrical Manufacturing Technician Name Role Phone Mike Tobin MD, MPH Primary Care Provider + Mike Tobin MD, MPH Primary Care Provider + Mike Tobin MD, MPH Primary Care Provider + Mike Tobin MD, MPH Primary Care Provider + Encounter Details Date Type Department Care Team (Late st Contact Info) Description 11/05/2017 Transcribe Orders [facility] Specimen Processing [address] [place] [address] Checo Chu MD [address] [facility] [address], [address] [place] [address] [email or web address] Pyogenic bacterial arthritis of knee, unspecified laterality (Primary Dx); Edema of orbit, unspecified laterality; Allergic state, initial encounter Social History Tobacco Use Types Packs/Day Years [...] documented as of this encounter Results * (ABNORMAL) CBC and differential (11/05/2017 8:05 AM EDT) WBC 6.17 3.40 - 11.20 K/uL [facility] RBC 3.24(L) 4.50 - 5.50 M/uL [facility] HGB 9.6(L) 13.0 - 17.0 g/dL [facility] HCT 30.0(L) 40.0 - 51.0 % [facility] PLT 422(H) 130 - 400 K/uL [facility] MCV 92.6 79.0 - 98.0 fL [facility] MCH 29.6 27.0 - 34.8 pg [facility] MCHC 32.0 31.5 - 36.0 g/dL [facility] RDW 15.2(H) 10.8 - 14.6 % [facility] MPV 8.1(L) 9.4 - 12.4 fl [facility] NRBC 0.00 /100 WBCs [facility] ABSOLUTE NRBC 0.00 K/uL [facility] DIFF METHOD Auto [facility] NEUTS 74.7 45.30 - 77.70 % [facility] LYMPHS 17.5 12.30 - 39.70 % [facility] MONOS 5.7 4.10 - 12.80 % [facility] EOS 1.3 0 - 7.2 % [facility] BASOS 0.2 0 - 2.80 % [facility] Granulocytes, immature (%) 0.6 0.0 - 0.9 % [facility] ABSOLUTE NEUTS 4.61 1.40 - 7.70 K/uL [facility] ABSOLUTE LYMPHS 1.08 0.60 - 3.20 K/uL [facility] ABSOLUTE MONOS 0.35 0.11 - 0.59 K/uL [facility] ABSOLUTE EOS 0.08 0.01 - 0.50 K/uL [facility] ABSOLUTE BASOS 0.01 0.00 - 0.08 K/uL [facility] Granulocytes, immature 0.04 0.00 - 0.05 K/uL [facility] Blood 11/05/2017 8:05 AM EDT 11/05/2017 9:41 AM EDT us Checo Chu MD LAB BLOOD BKR ORDERABLES Final R esult Performing Organization Address City/[facility]/ZIP Co de Phone Number [facility] [address] [place] [address] * (ABNORMAL) Comprehensive metabolic panel (11/05/2017 8:05 AM EDT) SODIUM 142 133 - 146 mmol/L [facility] POTASSIUM 4.1 3.3 - 5.1 mmol/L [facility] CHLORIDE 104 96 - 108 mmol/L [facility] CO2 25 21 - 35 mmol/L [facility] BUN 10 6 - 19 mg/dL [facility] CREATININE 0.60 0.5 - 1.5 mg/dL [facility] GLUCOSE 100(H) 70 - 99 mg/dL [facility] ALBUMIN 2.8(L) 3.9 - 4.8 g/dL [facility] TOTAL PROTEIN 6.5 6.5 - 8.0 g/dL [facility] CALCIUM 8.4 8.4 - 10.3 mg/dL [facility] ALKALINE PHOSPHATASE 74 39 - 117 U/L [facility] TOTAL BILIRUBIN 0.3 0.0 - 1.2 mg/dL [facility] AST 16 0 - 37 U/L [facility] ALT 17 0 - 40 U/L [facility] GLOBULIN 3.7 1 - 4.8 g/dL [facility] EGFR 96 >59 mL/min/1.7 3m2 [facility] Comment:If patient is black, multiply result by 1.159. The eGFR calculation has changed from the MDRD equation to the CKD-EPI equation as of August 13, 2017. ANION GAP 17 10 - 20 mmol/L [facility] Blood 11/05/2017 8:05 AM EDT 11/05/2017 9:41 AM EDT us Checo Chu MD LAB BLOOD BKR ORDERABLES Final R esult [facility] [address] [place] [address] documented in this encounter Visit Diagnoses Diagnosis Pyogenic bacterial arthritis of knee, unspecified laterality- Primary Edema of orbit, unspecified laterality Allergic state, initial encounter documented in this encounter Additional Health Concerns Infection Onset Date Last Indicated Resolved Time CoV-Risk 05/29/2021 05/29/2021 06/08/2021 1:23 AM EST documented as of this encounter Care Teams Electrical Manufacturing Technician Relationship Specialty Start Date End Date Mike Tobin MD, MPH [address] [place] [address] [email or web address] PCP - General Family Medicine 09/12/15 05/17/19 Mike Tobin MD, MPH [address] [place] [address] [email or web address] PCP - General Family Medicine 05/18/19 04/20/21 Mike Tobin MD, MPH [address] [place] [address] [email or web address] PCP - General Family Medicine 04/21/21 07/07/24 Mike Tobin MD, MPH [address] [place] [address] [email or web address] PCP - General Family Medicine 07/08/24 documented as of this encounter Additional Source Comments The information contained in this document represents components of the legal health record. It is not the complete legal health record.[facility]
--- OUTSIDE RECORDS SUMMARY | 2025-05-24 18:31 | XMS_ITS ---
Author Organization [facility] on Care Team Providers Care [employer] Name Role Phone Cierra Ken Unavailable Unavailable Checo Chu Unavailable Unavailable Muna Cat Unavailable Unavailable Sybil Maldonado Unavailable Unavailable Allergies and adverse reactions Code CodeSystem Substance Reaction Severity StartDate Concern Status Levaquin Unknown 10/30/2017 active Care Team Name Role Address Phone Organization Dates Checo Chu PCP [address], [place], [address], [place] (Office): : [facility] 10/30/2017 - 11/05/2017 Cierra Ken [address] [place] [address], [place] (Office): [facility] 10/30/2017 - 11/05/2017 Muna Cat [address] [place] [address], [address], [place] (Office): : [facility] 10/30/2017 - 11/05/2017 Sybil Maldonado [address] [place] [address], [place], [address], [place] (Office): [facility] 10/30/2017 - 11/05/2017 Insurance Providers Coverage Status Coverage Type Relationship to Subscriber Member Identifier Subscriber Identifier Group Identifier Payer Identifier and Other information 2017 Code: 1 Code System OID:[id number] .[id number]. 221.5 Code System Name: Source of Payment Typology (PHDSC) Display: Medicare Translation: Code: [place] Code System: OID:2.16.840 .1.904601.6. 255.1336 Code System Name: Insurance Type Code ([id number]) Display Name: Medicare Part A Code: SELF Code System Name: HL7 RoleCode Code System OID:216.840.1 .888282.5.111 Display Name: Self Root: [id number] Payer Identifier: Root: [id number] Extension: [id number] Payer Name: Medicare [employer] Address: [address] [place] [address] City: [place] State: [place] Country: [facility] 2017 Code: 349 Code System OID:2.16.840 .[id number]. 221.5 Code System Name: Source of Payment Typology (PHDSC) Display: Other Translation: Code: C1 Code System: OID:2.16.840 .1.947610.6. 255.1336 Code System Name: Insurance Type Code ([id number]) Display Name: Commercial Insurance Code: SELF Code System Name: HL7 RoleCode Code System OID:216.840.1 .543266.5.111 Display Name: Self [id number] Root: [id number] Payer Identifier: Root: [id number] Extension: [id number] Payer Name: Rhianna Address: [address] City: [place] State: [place] Country: [place] [employer]: [phone] Problems Problem # Description Date of onset Resolved Date Code CodeSystem Concern Status 1 ALLERGIC URTICARIA 11/05/[address] active 2 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 10/30/[address] active 3 ESSENTIAL (PRIMARY) HYPERTENSION 10/30/[address] active 4 INFECTION AND INFLAMMATORY REACTION DUE TO INTERNAL RIGHT KNEE PROSTHESIS, SUBSEQUENT ENCOUNTER 10/30/[address] active 5 MIXED HYPERLIPIDEMIA 10/30/[address] active 6 MUSCLE WEAKNESS (GENERALIZED) 10/30/[address] active 7 OTHER ABNORMALITIES OF GAIT AND MOBILITY 10/30/[address] active 8 PRIMARY GENERALIZED (OSTEO)ARTHRITIS 10/30/[address] active 9 SPINAL STENOSIS, LUMBAR REGION WITHOUT NEUROGENIC CLAUDICATION 10/30/[address] active Reason for Referral No Reasons for Referral Entered Social History Social History Observation Description Start Date End Date Code Code System Current Smoking Status Tobacco smoking consumption unknown 753312936 SNOMED CT Sex Assigned At Male 1940 [address]-8 [facility] Gender Identity Sexual Orientation Vital Signs Code Code System Vitals Name Values and Units Timing Information 9279-1 LOINC Respiratory Rate Value=18.0 Units=/m in 11/05/2017 66875-8 LOINC O2 % BldC Oximetry Value=93.0 Units= % 11/05/2017 83104-6 LOINC Pain Level Value=0.0 11/05/2017 8462-4 LOINC Blood Pressure-Diastolic Value=68 Un its=mmHg 11/05/2017 8480-6 LOINC Blood Pressure-Systolic Blfft=529 Un its=mmHg 11/05/2017 8867-4 LOINC Heart rate Iqnzy=165.0 Units=/min 11/05/2017 8310-5 LOINC Body Temperature Value=97.7 Units= F 11/05/2017 33723-5 LOINC Weight Mjyht=552.0 Units=Lbs 8302-2 LOINC Height Value=68.0 Units=Inches 10/30/2017
--- OUTSIDE RECORDS SUMMARY | 2025-05-24 18:31 | XMS_ITS | Encounter Summary ---
Author Organization [facility] Address [address] [facility] ([place], [place]) [address] [place] [phone] Phone Care Team Providers Care Border Machine Operator Name Role Phone Mike Tobin MD, MPH Primary Care Provider + Mike Tobin MD, MPH Primary Care Provider + Mike Tobin MD, MPH Primary Care Provider + Encounter Details Date Type Department Care Team (Late st Contact Info) Description 05/29/2019 Ancillary Orders Virtual Department [address] [place] [address] Gemini Deleon [place] [address] [phone] [email or web address] Calculus of kidney Social History Tobacco Use [...] of this encounter Results * US Kidneys (07/27/2019 8:27 AM EST) Anatomical Region Laterality Modality Abdomen, Kidney Ultrasound 07/27/2019 8:37 AM EST Impressions 07/27/2019 8:39 AM EST 1. Stable bilateral non-obstructive nephrolithiasis. 2. Right renal Bosniak 1 and 2 renal cysts without interval change. POS [id number] Narrative 07/27/2019 8:39 AM EST COMPARISON: 07/15/2018. RENAL ULTRASOUND FINDINGS: Right Kidney: measures 13 x 5 cm. No hydronephrosis or masses. Stable mid pole 8 mm calculus, 7.3 cm thinly septated bilobed cyst midpole cyst and 1.7 cm midpole simple cyst. Cortical echogenicity and thickness are normal. No perinephric fluid collections. Left Kidney: measures 13 x 6 cm. No hydronephrosis or masses. Stable 6 mm lower pole calculus. Cortical echogenicity and thickness are normal. No perinephric fluid collections. Procedure Note Tammie Lala MD - 07/27/2019 COMPARISON: 07/15/2018. RENAL ULTRASOUND FINDINGS: Right Kidney: measures 13 x 5 cm. No hydronephrosis or masses. Stablemid pole 8 mm calculus, 7.3 cm thinly septated bilobed cyst midpole cystand 1.7 cm midpole simple cyst. Cortical echogenicity and thickness arenormal. No perinephric fluid collections. Left Kidney: measures 13 x 6 cm. No hydronephrosis or masses. Stable 6mm lower pole calculus. Cortical echogenicity and thickness are normal.No perinephric fluid collections. IMPRESSION: 1. Stable bilateral non-obstructive nephrolithiasis. 2. Right renal Bosniak 1 and 2 renal cysts without interval change. POS [id number] us Gemini PIERCE IMG US RENAL Final Resu lt * XR ABDOMEN 1 VIEW (07/27/2019 7:50 AM EST) Anatomical Region Laterality Modality Abdomen Radiographic Lynette ging 07/27/2019 10:2 5 AM EST Impressions 07/27/2019 10:31 AM EST Right renal calculi as above. POS: [id number] Narrative 07/27/2019 10:31 AM EST XR ABDOMEN 1 VIEW CLINICAL HISTORY: Calculus of kidney. COMPARISON: Abdominal radiographs dated 07/15/2018 and 07/10/2017 and renal ultrasound dated 07/27/2019. FINDINGS: Unchanged appearance of calcification in the right upper quadrant, projecting over the expected location of the right renal shadow measuring 1.1 x 0.7 cm. Additional faint round density is seen just above this measuring 0.6 cm. Both renal shadow are largely obscured by the overlying bowel gas. No definite calculi seen overlying the expected location of the left renal shadow or along the expected course of the ureters. Unchanged appearance of calcified phleboliths in the left hemipelvis. Air and stool are seen throughout the colon, extending to the rectum. No focal small bowel dilatation seen. No acute bony abnormality. Degenerative change is seen in both hips, greater on the left. Degenerative change is also seen in the spine. The patient is status post fusion at L5-S1. The visualized lung bases are clear. Procedure Note Linda Caban MD - 07/27/2019 XR ABDOMEN 1 VIEW CLINICAL HISTORY: Calculus of kidney. COMPARISON: Abdominal radiographs dated 07/15/2018 and 07/10/2017 and renalultrasound dated 07/27/2019. FINDINGS: Unchanged appearance of calcification in the right upper quadrant,projecting over the expected location of the right renal shadow measuring1.1 x 0.7 cm. Additional faint round density is seen just above thismeasuring 0.6 cm. Both renal shadow are largely obscured by the overlyingbowel gas. No definite calculi seen overlying the expected location ofthe left renal shadow or along the expected course of the ureters.Unchanged appearance of calcified phleboliths in the left hemipelvis. Air and stool are seen throughout the colon, extending to the rectum. Nofocal small bowel dilatation seen. No acute bony abnormality. Degenerative change is seen in both hips,greater on the left. Degenerative change is also seen in the spine. Thepatient is status post fusion at L5-S1. The visualized lung bases are clear. IMPRESSION: Right renal calculi as above. POS: [id number] Gemini PIERCE IMG XR ABDOMEN Final Resu lt documented in this encounter Visit Diagnoses Diagnosis Calculus of kidney Calculus of kidney Calculus of kidney documented in this encounter Additional Health Concerns Infection Onset Date Last Indicated Resolved Time CoV-Risk 05/29/2021 05/29/2021 06/08/2021 1:23 AM EST documented as of this encounter Care Teams Border Machine Operator Relationship Specialty Start Date End Date Mike Tobin MD, MPH [address] [place] [address] [email or web address] PCP - General Family Medicine 05/18/19 04/20/21 Mike Tobin MD, MPH [address] [place] [phone] PCP - General Family Medicine 04/21/21 07/07/24 Mike Tobin MD, MPH [address] [place] [address] [email or web address] PCP - General Family Medicine 07/08/24 documented as of this encounter Additional Source Comments The information contained in this document represents components of the legal health record. It is not the complete legal health record.[facility]
--- OUTSIDE RECORDS SUMMARY | 2025-05-24 18:31 | XMS_ITS | Data Portability ---
Author Organization [facility] [employer] Address [address] [place] [address] [place] [address] Care Team Providers Care Cheerleading Coach Name Role Phone CHETAN POLO Referring Provider CHETAN POLO Referring Provider RAVIN BHATTI Referring Provider Assessment Encounter Date Assessment Date Assessment LastModified by Organization Details LastModified Time 03/23/2021 03/23/2021 IMPRESSION: Possible Parkinson's disease with 1 year of recently worsening bilateral hand rest tremor. 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 When he extends for [id number] this goes away signifying an independent tremor from the slightly higher frequency and definitively lower amplitude intention tremor he has bilaterally with his hands. It abolishes if he extends his wrists making it less likely an action tremor. Atypicality for parkinsonian tremor: By history, it started on both sides at once. However, he has some mild forgetfulness so I cannot put high weight on this data from history. Parkinson's disease is not strongly suggested by the presentation: Rest tremor is now bilateral by which time other parkinsonian signs and symptoms should be evident but they are not: there are no other signs on exam to suggest Parkinson's disease, no rigidity, no bradykinesia, no discoordination of fine motor movement. His gait is abnormal but this seems to relate to residual from lumbar radiculopathy from lumbar stenosis. Gait does not have parkinsonian features. Parkinsonism other than Parkinson's disease becomes more likely, therefore. 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 Exam makes unlikely cortical basal degeneration or supranuclear palsy. Multisystems atrophy is rare with onset at this age. The simplest first diagnostic direction is a diagnostic trial of carbidopa levodopa. We discussed this and patient and daughters are on board. They understand that if 1 tablet 3 times a day does not help that we might have to go up to a higher dose to get appropriate certainty 1 where the other. If this is unsuccessful because it does not help even at higher doses, then in all likelihood it is not Parkinson's disease. If there is discontinuation because of side effects, then other directions including DaTscan and brain MRI will be considered. PLAN Neal Memo March 23, 2021 To help tremor: Start Sinemet (generic carbidopa/levodopa 25/100) Carbidopa/levodopa 25/100 one half tablet at waking for one week, Carbidopa/levodopa 25/100 one half tablet 3 times a day, 1 week Carbidopa/levodopa 25/101 full tablet 3 times a day afterwards Take the medication 1 hour before meals. It works better that way. However, if there is any nausea, then switch and take it with meals. If you do, try to minimize protein which reduces the benefit of Sinemet. Sinemet may cause side effects of nausea or diarrhea or dizziness or rarely, hallucination. If side effects are mild, wait a while to see if your body gets used to the medication and they go away. If side effects are not mild or do not go away within a week, stop the medication If Sinemet works at any particular dose so that the tremor definitely is much less, you do not have to increase the dose. Just stay on that dose until you see me at follow-up so I can see how much it is working. Follow-up in 4 weeks [email or web address] Not available 03/23/2021 18:37:38 Plan of Treatment Reminders Order Date Submit Date Provider Last Modified By Organization Details Last Modified Time Details Appointments None recorded. Lab None recorded. Referral None recorded. Procedures None recorded. Surgeries None recorded. Imaging None recorded. Medication Orders carbidopa 25 mg-levodop a 100 mg tablet 2020 021 [facility] #[id number], [address] [place], [address], 18:24:14 Patient TargetsNo targets recorded. Patient InstructionsNo instructions recorded. Reason for Referral None Reported. Medical Equipment None Reported. Allergies Allergen ID Allergen Name Allergen Category Reaction Reaction Severity Criticality Documentation Date Start Date Code Code System Note Provider Name and Address Organization Details Recorded Time 609 Product containin g penicilli n (product) medicatio n Not available Not available Not available 03/23/2021 02045 8001 SNOMED [facility] 14:26:03 610 Levaquin medicatio n Not available Not available Not available 03/23/2021 79935 2 RxNorm [facility] 14:26:10 Medications Name Sig Start Date Stop Date Status Note LastModified by Organization Details LastModified Time clindamycin HCl 300 mg capsule active Not Available Not Availab le Not Available simvastatin 40 mg tablet active Not Available Not Available No t Available propranolol 40 mg tablet active Not Available Not Available No t Available hydrochlorothiaz fernando 12.5 mg capsule active Not Available Not Available Not Available triamterene 37.5 mg-hydrochloroth iazide 25 mg tablet active Not Available Not Available Not Available carbidopa 25 mg-levodopa 100 mg tablet TAKE 1/2 A TABLET BY MOUTH EVERY DAY UPON WAKING FOR 1 WEEK , 1/2 TABLTE 3 TIMES A DAY FOR 1 WEEK THEN TAKE 1 TABLET BY MOUTH 3 TIMES A DAY active Not Available Not Available No t Available finasteride 5 mg tablet active Not Available Not Available Not Available aspirin active Not Available Not Avail able Not Available finasteride active Not Available Not A vailable Not Available propranolol active Not Available Not A vailable Not Available lisinopril active Not Available Not Av ailable Not Available triamterene active Not Available Not A vailable Not Available Clindamycin active Not Available Not A vailable Not Available Vitals Date Recorded Body height Body mass index (BMI) Body weight Respiratory rate Provider Name and Address Organization Details Last Updated DateTime 03/23/2021 172.72 cm 29.2 kg/m2 06019.74 g 12 /min [facility] 03/23/2021 14:25:51 Social History Question Answer Notes LastModified by Organizat [facility] Details LastModified Time Tobacco Smoking Status Never Smoker Roselia florez [facility] 03/23/2021 14:31:45 What Is Your Level Of Caffeine Consumption? None Information not available 03/23/2021 What Is The Highest Grade Or Level Of School You Have Completed Or The Highest Degree You Have Received? [id number] Information not available 03/23/2021 Which Of Your Hands Is Dominant? Right Information not available 03/23/2021 Sex: Unknown Functional Status Question Answer Note LastModified by Organizat ion Details LastModified Time What is your level of alcohol consumption? Moderate 1-2 per week Information not available 03/23/2021 Mental Status None recorded. Family History Relationship Description Onset Age of this Age Resolved Age Notes LastModified by Organization Details LastModified Time Father Type 1 diabetes mellitus Not available 2020 14:29:16 Father Hypertensive disorder Not available 2020 14:29:36 Medical History Condition Response High Blood Pressure or Hypertension Y Past Encounters Encounter ID Performer Location Encounter Start Date Encounter Closed Date Diagnosis/Indication Diagnosis SNOMED-CT Code Diagnosis ICD10 Code Diagnosis IMO Codes Diagnosis Note [id number] Bryson Zhong MD [facility] [address] [place] [address] [place] [phone] 03/23/2021 13:56:54 03/27/2021 09:16:34 Essential tremor 892309151 G25.0 Parkinson's disease 4904 9000 G20 Health Concerns Section Related Observation LastModified by Organization Detai ls LastModified Time None Recorded Concern Status LastModified by Organization Details LastModified Time None Recorded Advance Directives Directive None Recorded Payers Insurance Date Sequence Insurance Name Policy Number Policy Logan Covered Member ID Logan Member ID Guarantor Name 03/28/[address] [facility] IN[facility]MN[facility] PLAN (INDEMNITY) [id number] Neal Hampton [id number] Neal Hampton 03/28/2021 1 MEDICARE B-ME: [employer] Neal Hampton [id number] Neal Hampton Notes Date Note Type Note Provider Name and Address Organization Details Recorded Time 03/23/2021 text/html He presents for initial neurology consultation for assessment and management of bilateral hand tremor since late 2019, worsening over the past 2 months. 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 He is accompanied by his daughters Shannon and Nikki who helps with the history. He is right-handed. Is hard of hearing. In late 2019 he began noticing that his hands were shaking, symptoms starting in both hands around the same time. He notices his hands shaking if he is using them or if they are resting on his lap, pretty much anytime Not when he is laying down in bed before going to sleep. The hand shaking makes his writing difficult on some days t here is day-to-day variation in severity of symptoms. Hand shaking also makes holding a cup of coffee difficult and he has spilled the coffee. He does not have trouble buttoning a button. He has not noticed shaking of any other part of his body. He uses a cane because of imbalance from spinal stenosis status post 2 surgeries and with residual bilateral dropfoot and status post left knee replacement with revision in 2018 when it was infected. Since then, he has noticed a little worsening with walking. He is less steady, with worsening mobility especially on uneven ground. He uses his cane almost all the time. He furniture glides sometimes when he is inside. He has had no falls in recent times. He gets to sleep without problem and has no restless legs. He has no problem turning in bed. He does not fall out of bed, he has a good sense of smell. There are no hallucinations. There is no unexplained constipation. His mood is good and his daughters agree, smiling. He is sometimes in a bad mood he adds but all agree that this has not changed in recent times. His memory is fine most of the time and there has been no address change clerk the past year. His daughters do not notice any big problem with his memory, just the normal stuff With dates. Bryson Zhong MD [address] [place] [address] [place], [phone], [facility] 03/23/2021 18:39:13
--- OUTSIDE RECORDS SUMMARY | 2025-05-24 18:31 | XMS_ITS | Encounter Summary ---
Author Organization [facility] Address [address] [facility] [address] [place] [phone] Phone Care Team Providers Care Supervisor [employer] Name Role Phone Mike Tobin MD, MPH Primary Care Provider + Mike Tobin MD, MPH Primary Care Provider + Encounter Details Date Type Department Care Team (Late st Contact Info) Description 10/04/2023 Procedure Pass OR Admitting Dept - Virtual Department [address] [place] [address] Social History Tobacco Use Types Packs/Day Years [...] 8:00 PM EDT Magali Shen RN * [place] Suicide Severity Rating Scale (Screener/Recent Self-Report) Question [...] on filedocumented in this encounter Care Teams Supervisor [employer] Relationship Specialty Start Date End Date Mike Tobin MD, MPH [address] [place] [address] [email or web address] PCP - General Family Medicine 04/21/21 07/07/24 Mike Tobin MD, MPH [address] [place] [address] [email or web address] PCP - General Family Medicine 07/08/24 documented as of this encounter Additional Source Comments The information contained in this document represents components of the legal health record. It is not the complete legal health record.[facility]
--- OUTSIDE RECORDS SUMMARY | 2025-05-24 18:31 | XMS_ITS | Data Portability ---
Author Organization [place] [facility], Allergy Address [address] [place] [phone] Care Team Providers Care Medical Lab Specialist Name Role Phone RAVIN BHATTI Primary Care Provider Assessment No assessment recorded. Plan of Treatment Reminders Order Date Submit Date Provider Last Modified By Organization Details Last Modified Time Details Appointments None record ed. Lab None record ed. Referral None record ed. Procedures None record ed. Surgeries None record ed. Imaging None record ed. Medication Orders None record ed. Patient TargetsNo targets recorded. Patient InstructionsNo instructions recorded. Reason for Referral None Reported. Results Created Date Observation Date Name Description Value Unit Range Abnormal Flag Note LastModifiedBy Organization Detail LastModifiedTime 01/28/20 24 06/18/2018 audio gram No observ ation record ed. [email or web address] Not Available 14:10:44 01/28/20 24 07/02/2018 audio gram No observ ation record ed. [email or web address] Not Available 14:10:46 01/28/20 24 01/07/2019 audio gram No observ ation record ed. [email or web address] Not Available 14:10:50 Result Notes None recorded. Problems Name Problem SNOMED Code Status Onset Date Resolution Date Notes Provider Name and Address Organization Details Recorded Time Bilateral tinnitus 88050273105 02 Active 2017 Tinnitus, bilateral ; Note: Date Diagnosed : 08/08/2017 9:46 AM (H93.13) Not Available [facility] 03:19:13 Sensorine ural hearing loss of bilateral ears 839090451 Active 2017 Sensorine ural hearing loss, bilateral ; Note: Date Diagnosed : 08/08/2017 9:46 AM (H90.3) Not Available [facility] 4 03:19:13 Impacted cerumen in right ear 14531805249 84324 Active 2017 Impacted cerumen, right ear; Note: Date Diagnosed : 08/08/2017 9:46 AM (H61.21) Not Available [facility] 4 03:19:12 M ni re's disease 82896240 Active 2017 Meniere's disease, right ear; Note: Date Diagnosed : 8 5:04 PM (H81.01) Meniere 's disease, unspecifi ed ear; Note: Date Diagnosed : 08/08/2017 12:50 PM (H81.09) ; Start Date : 8 Not Available [facility] 4 03:19:13 Impacted cerumen of bilateral ears 81890001135 44989 Active 2018 Impacted cerumen, bilateral ; Note: Date Diagnosed : 01/29/2019 2:51 PM (H61.23) Not Available [facility] 4 03:19:13 Problem Notes None recorded. Procedures Surgical History Date Name Laterality Status Provider Name and Address Organization Details Recorded Time total knee replacement completed JB PARRA MD [address] [place] [address], [id number], [facility] 02/06/2024 09:08:57 Imaging Results None recorded. Procedure Notes None recorded. Medical Equipment None Reported. Allergies No known drug allergies Medications Name Sig Start Date Stop Date Status Note LastModified by Organization Details LastModified Time atorvasta tin 40 mg tablet TAKE 1 TABLET BY MOUTH EVERYDAY AT BEDTIME active Not Available Not Available No t Available ketoconaz ole 2 % shampoo active Medicati on ID: [id number] B rand Name: ketocona zole Sen d Method: E-Prescr ibed Sub s Allowed: subs OK Medic ationGen ericName : ketocona zole Not Available Not Available Not Available azithromy bart 250 mg tablet TAKE 2 TABLETS BY MOUTH TODAY, THEN TAKE 1 TABLET DAILY FOR 4 DAYS DIRECTED 02/22 completed Not Available Not Available Not Available sucralfat e 1 gram tablet TAKE 1 TABLET BY MOUTH BEFORE MEALS AND AT BEDTIME 02/05 completed Not Available Not Available Not Available lisinopri l 20 mg tablet TAKE 1 TABLET BY MOUTH EVERY DAY active Not Available Not Available No t Available fluoroura cil 5 % topical cream APPLY TO DRY SPOTS ON FACE TWICE DAILY X2 WEEKS, APPLY TO SPOTS ON ARMS, CHEST TWICE DAILY X3 WEEKS active Not Available Not Available No t Available sulfameth oxazole 800 mg-trimet hoprim 160 mg tablet TAKE 1 TABLET BY MOUTH TWICE A DAY FOR 7 DAYS 02/22 completed Not Available Not Available Not Available triamcino lone acetonide 0.1 % topical cream APPLY A THIN LAYER TO THE AFFECTED AREA(S) BY TOPICAL ROUTE 2 TIMES PER DAY FOR 1 WEEK 02/25 completed Not Available Not Available Not Available simvastat in 40 mg tablet TAKE 1 TABLET BY MOUTH EVERY DAY active Not Available Not Available No t Available meclizine 25 mg tablet TAKE 1 TABLET BY MOUTH THREE TIMES A DAY NEEDED FOR VERTIGO active Not Available Not Available No t Available cephalexi n 500 mg capsule TAKE 4 CAPSULES BY MOUTH 1 HOUR BEFORE DENTAL APPOINTM ENT 02/05 completed Not Available Not Available Not Available pantopraz ole 40 mg tablet,de layed release TAKE 1 TABLET BY MOUTH EVERY DAY 02/05 completed Not Available Not Available Not Available oseltamiv ir 75 mg capsule TAKE 1 CAPSULE BY MOUTH TWICE A DAY FOR 5 DAYS 02/25 completed Not Available Not Available Not Available nystatin- triamcino lone 100,000 unit/g-0. 1 % topical cream APPLY TO AFFECTED AREA TWICE A DAY active Not Available Not Available No t Available triamtere ne 37.5 mg-hydroc hlorothia zide 25 mg tablet 08/08 completed Medicati on ID: [id number] D uration Value: 90 Brand Name: triamter lilli-hydr ochlorot hiazid S end Method: E-Prescr ibed Sub s Allowed: subs OK Speci al Instruct ion: TAKE 1/2 TABLET BY MOUTH EVERY DAY Medi cationGe nericNam e: triamter lilli-hydr ochlorot hiazid Not Available Not Available Not Available carbidopa 25 mg-levodo pa 100 mg tablet TAKE 3 TABLETS 3 TIMES A DAY BY ORAL ROUTE. active Not Available Not Available No t Available ketoconaz ole 2 % topical cream APPLY TO THE AFFECTED AREAS ONCE DAILY AT BEDTIME NEEDED FOR 7-10 DAYS 02/25 completed Not Available Not Available Not Available finasteri de 5 mg tablet TAKE 1 TABLET BY MOUTH EVERY DAY DIRECTED active Not Available Not Available No t Available diclofena c 1 % topical gel APPLY 2 GRAMS TOPICALL Y 3 TIMES A DAY TO RIGHT AREA 02/05 completed Not Available Not Available Not Available Vitals Date Recorded Body height Body mass index (BMI) Body weight Provider Name and Address Organization Details Last Updated DateTime 02/06/2024 172.72 cm 26.6 kg/m2 79324.66 g Muna Cuellar [facility] 02/06/2024 09:27:52 Date Recorded Body height Body mass index (BMI) Body weight Provider Name and Address Organization Details Last Updated DateTime 02/25/2025 172.72 cm 28.1 kg/m2 36443.59 g Muna Cuellar [facility] 02/25/2025 11:55:00 Social History None recorded. Functional Status None recorded. Mental Status None recorded. Family History Nothing Reported Notes:Ears: Hearing loss aft er age 18 - father. Cardiovascular: Heart disease in a male, diagnosed at unknown age - father. Hypertension - father Medical History Condition Response Hypertension Y Past Encounters Encounter ID Performer Location Encounter Start Date Encounter Closed Date Diagnosis/Indication Diagnosis SNOMED-CT Code Diagnosis ICD10 Code Diagnosis IMO Codes Diagnosis Note [id number] JB PARRA MD [facility] on [address] [place] [phone] 02/06/2024 09:16:53 02/06/2024 09:43:54 Impacted cerumen of bilateral ears [id number] 109058 H61.23 Impacted cerumen was removed and tolerated well. Follow-up in a year. [id number] JB PARRA MD [facility] on [address] [place] [phone] 02/25/2025 11:25:32 02/25/2025 12:10:46 Impacted cerumen of bilateral ears 7881404041 313254 H61.23 Partially impacted cerumen was removed and tolerated well. Follow-up in a year. Health Concerns Section Related Observation LastModified by Organization Detai ls LastModified Time None Recorded Concern Status LastModified by Organization Details LastModified Time None Recorded Advance Directives Directive None Recorded Payers Insurance Date Sequence Insurance Name Policy Number Policy Logan Covered Member ID Logan Member ID Guarantor Name 02/25/2025 1 MEDICARE B-UT: [employer] Neal Yu Memo Lopez [id number] Neal Hampton Jr 02/25/2025 2 [facility] INDEMNITY PLAN (INDEMNITY) [id number] Neal Yu Memo Lopez [id number] Neal Hampton Jr Notes Date Note Type Note Provider Name and Address Organization Details Recorded Time 02/06/2024 text/html ROS as noted in the HPI 83-year-old male has a history of right-sided M ni re's disease. He has been on Dyazide. He used to wear binaural amplification. He was last seen in August 2022. New diagnosis of Parkinson's. He feels some popping on the left when he swallows. JB PARRA MD [address] [place] [address], [phone], [place] [facility] 02/06/2024 09:40:08 02/25/2025 text/html ROS as noted in the HPI 84-year-old male has a history of right-sided M ni re's disease and Parkinson's. He has been on Dyazide. He used to wear binaural amplification. He was last seen a year ago. JB PARRA MD [address] [place] [address],[address], [address], [place] [facility] 02/25/2025 13:00:43
--- OUTSIDE RECORDS SUMMARY | 2025-05-24 18:31 | XMS_ITS | Encounter Summary ---
Author Organization [facility] Address [address] [facility] [address] [place] [address] Phone Care Team Providers Care Supervisor Agricultural Education Name Role Phone Mike Tobin MD, MPH Primary Care Provider + Mike Tobin MD, MPH Primary Care Provider + Encounter Details Date Type Department Care Team (Late st Contact Info) Description 07/01/2024 Procedure Pass [facility], Ct Scan - [address] [address] Social History Tobacco Use Types Packs/Day Years Used Date Smoking Tobacco: Never Smokeless Tobacco: Never Alcohol Use Standard Drinks/Week Comments Not Currently 2 (1 standard drink = 0.6 oz pur e alcohol) rarely Home Health Assessment: Transportation Answer Date Recorded Lack of Transportation (Medical) No 12/26/2023 Lack of Transportation (Non-Medical) No 12/26/2023 Patient Unable or Declines to Respond No 12/26/2023 Education Answer Date Recorded Are you interested [...] filedocumented in this encounter Care Teams Supervisor Agricultural Education Relationship Specialty Start Date End Date Mike Tobin MD, MPH [address] [place] [address] [email or web address] PCP - General Family Medicine 04/21/21 07/07/24 Mike Tobin MD, MPH [address] [place] [address] PCP - General Family Medicine 07/08/24 documented as of this encounter Additional Source Comments The information contained in this document represents components of the legal health record. It is not the complete legal health record.[facility]
--- OUTSIDE RECORDS SUMMARY | 2025-05-24 18:31 | XMS_ITS | Encounter Summary ---
Author Organization [facility] Address [address] [facility] [address] [address] Phone Care Team Providers Care Animal Care Attendant Name Role Phone Mike Tobin MD, MPH Primary Care Provider + Mike Tobin MD, MPH Primary Care Provider + Mike Tobin MD, MPH Primary Care Provider + Mike Tobin MD, MPH Primary Care Provider + Encounter Details Date Type Department Care Team (Late st Contact Info) Description 05/04/2019 Prep for Surgery [facility] [address] [place] [id number] Vinita Rivera MD [address] [place] [address] Orthopedics & Sports Medicine, [facility] [place] [address] [email or web address] Social History Tobacco Use Types Packs/Day Years [...] documented as of this encounter Care Teams Animal Care Attendant Relationship Specialty Start Date End Date Mike Tobin MD, MPH [address] [place] [address] [email or web address] PCP - General Family Medicine 09/12/15 05/17/19 Mike Tobin MD, MPH [address] [place] [address] [email or web address] PCP - General Family Medicine 05/18/19 04/20/21 Mike Tobin MD, MPH [address] [place] [address] [email or web address] PCP - General Family Medicine 04/21/21 07/07/24 Mike Tobin MD, MPH [address] [place] [address] [email or web address] PCP - General Family Medicine 07/08/24 documented as of this encounter Additional Source Comments The information contained in this document represents components of the legal health record. It is not the complete legal health record.[facility]
--- OUTSIDE RECORDS SUMMARY | 2025-05-24 18:31 | XMS_ITS | Encounter Summary ---
Author Organization [facility] Address [address] [facility] [address] [place] [address] Phone Care Team Providers Care Seamer Operator Name Role Phone Mike Tobin MD, MPH Primary Care Provider + Mike Tobin MD, MPH Primary Care Provider + Encounter Details Date Type Department Care Team (Late st Contact Info) Description 10/07/2023 Procedure Pass [facility] ENDO DEPT [address] [facility], 4th [place] [address] Social History Tobacco Use Types Packs/Day Years [...] on filedocumented in this encounter Care Teams Seamer Operator Relationship Specialty Start Date End Date Mike Tobin MD, MPH [address] [place] [address] [email or web address] PCP - General Family Medicine 04/21/21 07/07/24 Mike Tobin MD, MPH [address] [place] [address] [email or web address] PCP - General Family Medicine 07/08/24 documented as of this encounter Additional Source Comments The information contained in this document represents components of the legal health record. It is not the complete legal health record.[facility]
--- OUTSIDE RECORDS SUMMARY | 2025-05-24 18:31 | XMS_ITS | Encounter Summary ---
Author Organization [facility] Address [address] [facility] [address] [place] [address] Phone Care Team Providers Care Instrument Maker Apprentice Name Role Phone Mike Tobin MD, MPH Primary Care Provider + Mike Tobin MD, MPH Primary Care Provider + Mike Tobin MD, MPH Primary Care Provider + Mike Tobin MD, MPH Primary Care Provider + Encounter Details Date Type Department Care Team (Late st Contact Info) Description 10/31/2017 Transcribe Orders [facility] Specimen Processing [address] [place] [address] Checo Chu MD [address] [facility] [address] [place] [address] [email or web address] Pyogenic bacterial arthritis of knee, unspecified laterality (Primary Dx) Social History Tobacco Use Types [...] encounter Results * (ABNORMAL) CBC and differential (10/31/2017 4:30 AM EDT) WBC 8.54 3.40 - 11.20 K/uL [facility] RBC 3.13(L) 4.50 - 5.50 M/uL [facility] HGB 9.3(L) 13.0 - 17.0 g/dL [facility] HCT 29.3(L) 40.0 - 51.0 % [facility] PLT 489(H) 130 - 400 K/uL [facility] MCV 93.6 79.0 - 98.0 fL [facility] MCH 29.7 27.0 - 34.8 pg [facility] MCHC 31.7 31.5 - 36.0 g/dL [facility] RDW 14.8(H) 10.8 - 14.6 % [facility] MPV 8.3(L) 9.4 - 12.4 fl [facility] NRBC 0.00 /100 WBCs [facility] ABSOLUTE NRBC 0.00 K/uL [facility] DIFF METHOD Auto [facility] NEUTS 69.7 45.30 - 77.70 % [facility] LYMPHS 19.1 12.30 - 39.70 % [facility] MONOS 7.7 4.10 - 12.80 % [facility] EOS 2.3 0 - 7.2 % [facility] BASOS 0.5 0 - 2.80 % [facility] Granulocytes, immature (%) 0.7 0.0 - 0.9 % [facility] ABSOLUTE NEUTS 5.95 1.40 - 7.70 K/uL [facility] ABSOLUTE LYMPHS 1.63 0.60 - 3.20 K/uL [facility] ABSOLUTE MONOS 0.66(H) 0.11 - 0.59 K/uL [facility] ABSOLUTE EOS 0.20 0.01 - 0.50 K/uL [facility] ABSOLUTE BASOS 0.04 0.00 - 0.08 K/uL [facility] Granulocytes, immature 0.06(H) 0.00 - 0.05 K/uL [facility] Blood 10/31/2017 4:30 AM EDT 10/31/2017 7:36 AM EDT us Checo Chu MD LAB BLOOD BKR ORDERABLES Final R esult [facility] [address] [place] [address] * (ABNORMAL) Comprehensive metabolic panel (10/31/2017 4:30 AM EDT) SODIUM 139 133 - 146 mmol/L [facility] POTASSIUM 5.0 3.3 - 5.1 mmol/L [facility] CHLORIDE 100 96 - 108 mmol/L [facility] CO2 28 21 - 35 mmol/L [facility] BUN 12 6 - 19 mg/dL [facility] CREATININE 0.70 0.5 - 1.5 mg/dL [facility] GLUCOSE 94 70 - 99 mg/dL [facility] ALBUMIN 2.8(L) 3.9 - 4.8 g/dL [facility] TOTAL PROTEIN 5.8(L) 6.5 - 8.0 g/dL [facility] CALCIUM 8.2(L) 8.4 - 10.3 mg/dL [facility] ALKALINE PHOSPHATASE 81 39 - 117 U/L [facility] TOTAL BILIRUBIN 0.3 0.0 - 1.2 mg/dL [facility] AST 22 0 - 37 U/L [facility] ALT 28 0 - 40 U/L [facility] GLOBULIN 3.0 1 - 4.8 g/dL [facility] EGFR 90 >59 mL/min/1.7 3m2 [facility] Comment:If patient is black, multiply result by 1.159. The eGFR calculation has changed from the MDRD equation to the CKD-EPI equation as of August 13, 2017. ANION GAP 16 10 - 20 mmol/L [facility] Blood 10/31/2017 4:30 AM EDT 10/31/2017 7:36 AM EDT us Checo Chu MD LAB BLOOD BKR ORDERABLES Final R esult [facility] [address] [place] [address] documented in this encounter Visit Diagnoses Diagnosis Pyogenic bacterial arthritis of knee, unspecified laterality- Primary documented in this encounter Additional Health Concerns Infection Onset Date Last Indicated Resolved Time CoV-Risk 05/29/2021 05/29/2021 06/08/2021 1:23 AM EST documented as of this encounter Care Teams Instrument Maker Apprentice Relationship Specialty Start Date End Date Mike Tobin MD, MPH [address] [place] [address] [email or web address] PCP - General Family Medicine 09/12/15 05/17/19 Mike Tobin MD, MPH [address] [place] [address] [email or web address] PCP - General Family Medicine 05/18/19 04/20/21 Mike Tobin MD, MPH [address] [place] [address] PCP - General Family Medicine 04/21/21 07/07/24 Mike Tobin MD, MPH [address] [place] [address] [email or web address] PCP - General Family Medicine 07/08/24 documented as of this encounter Additional Source Comments The information contained in this document represents components of the legal health record. It is not the complete legal health record.[facility]
--- OUTSIDE RECORDS SUMMARY | 2025-05-24 18:31 | XMS_ITS | Encounter Summary ---
Author Organization [facility] Address [address] [facility] [address] [place] [address] Phone Care Team Providers Care Wheel Aligner Name Role Phone Mike Tobin MD, MPH Primary Care Provider + Mike Tobin MD, MPH Primary Care Provider + Mike Tobin MD, MPH Primary Care Provider + Mike Tobin MD, MPH Primary Care Provider + Encounter Details Date Type Department Care Team (Late st Contact Info) Description 05/13/2019 Procedure Pass [place] Admitting Dept - Virtual Department [address] [place] [address] Social History Tobacco Use Types Packs/Day Years [...] documented as of this encounter Care Teams Wheel Aligner Relationship Specialty Start Date End Date Mike Tobin MD, MPH [address] [place] [address] [email or web address] PCP - General Family Medicine 09/12/15 05/17/19 Mike Tobin MD, MPH [address] [place] [address] [email or web address] PCP - General Family Medicine 05/18/19 04/20/21 Mike Tobin MD, MPH [address] [place] [address] [email or web address] PCP - General Family Medicine 04/21/21 07/07/24 Mike Tobin MD, MPH [address] [place] [address] [email or web address] PCP - General Family Medicine 07/08/24 documented as of this encounter Additional Source Comments The information contained in this document represents components of the legal health record. It is not the complete legal health record.[facility]
--- OUTSIDE RECORDS SUMMARY | 2025-05-24 18:32 | XMS_ITS | Encounter Summary ---
Author Organization [facility] Address [address] [place] [address] Care Team Providers Care Laborer Prestressed Concrete Name Role Phone Mike Tobin MD Primary Care Provider [phone] Encounter Details Date Type Department Care Team (Late st Contact Info) Description 08/18/2024 Lab Requisition [facility] - Main Lab [address] [place] [address] Say Louie MD [address] [place] [address] Calculus of kidney Social History [...] Component(s) See below 08/25/2024 8:07 AM EDT [facility] Comment: 75% Uric acid anhydrous 25% Sodium urate Stone Weight 0.0059 g 08/25/2024 8:07 AM EDT [facility] Comment: This test was developed and its performance characteristics determined by [facility] [employer] in a manner consistent with CLIA requirements. This test has not been cleared or approved by the U.S. Food and Drug Administration. Test performed at [facility], [address], [place] [address] Angie Singh MD, PhD - Head Of English Calculus 08/18/2024 08/18/2024 1:3 6 PM EDT us Say Louie MD LAB BODY FLUIDS AND STOOLS ORDER BRETT Final Result [facility] [address] [place] [address] documented in this encounter Visit Diagnoses Diagnosis Calculus of kidney documented in this encounter Care Teams Laborer Prestressed Concrete Relationship Specialty Start Date End Date Mike Tobin MD [address] [place] [phone] PCP - General Family Medicine 07/29/24 documented as of this encounter
--- OUTSIDE RECORDS SUMMARY | 2025-05-24 18:32 | XMS_ITS | Encounter Summary ---
Author Organization [facility] Address [address] [facility] [address] [place] [address] Phone Care Team Providers Care Tractor Technician Name Role Phone Mike Tobin MD, MPH Primary Care Provider + Encounter Details Date Type Department Care Team (Late st Contact Info) Description 09/08/2024 Procedure Pass [place] Admitting Dept - Virtual Department [address] [place] [address] Social History Tobacco Use Types Packs/Day Years Used Date Smoking Tobacco: Never Smokeless Tobacco: Never Alcohol Use Standard Drinks/Week Comments Never 0 (1 standard drink = 0.6 oz pur e alcohol) Home Health Assessment: Transportation Answer Date Recorded [...] uch as food, clothing, or medical care? No 08/11/2024 In the past 12 months have y ou been in a relationship with a person who hurts, threatens, or tries to control you? No 08/11/2024 Are you denied basic needs s uch as food, clothing, or medical care? No 08/11/2024 In the past 12 months have y ou been in a relationship with a person who hurts, threatens, or tries to control you? No 08/11/2024 Sex and Gender Information Value Date Recorded Sex Assigned at Male 12/23/2017 11:35 AM EDT Legal Sex Male 4:33 PM EDT Gender Identity Male 12/23/2017 11:35 AM EDT Sexual Orientation Straight 02/22/2022 6: 03 PM EDT documented as of this encounter Plan of Treatment Not on file documented as of this encounter Visit Diagnoses Not on filedocumented in this encounter Care Teams Tractor Technician Relationship Specialty Start Date End Date Mike Tobin MD, MPH [address] [place] [address] [email or web address] PCP - General Family Medicine 07/08/24 documented as of this encounter Additional Source Comments The information contained in this document represents components of the legal health record. It is not the complete legal health record.[facility]
--- OUTSIDE RECORDS SUMMARY | 2025-05-24 18:32 | XMS_ITS | Encounter Summary ---
Author Organization [facility] Address [address] [place] [address] [place] [address] Phone Care Team Providers Care Sign Maintenance Name Role Phone Mike Tobin MD, MPH Primary Care Provider + Mike Tobin MD, MPH Primary Care Provider + Mike Tobin MD, MPH Primary Care Provider + Encounter Details Date Type Department Care Team (Late st Contact Info) Description 05/29/2019 Prep for Surgery [facility] [address] [place] [phone] Vinita Rivera MD [address] [place] [address] Orthopedics & Sports Medicine, [place], [place] [id number] Social History Tobacco Use Types Packs/Day Years [...] documented as of this encounter Care Teams Sign Maintenance Relationship Specialty Start Date End Date Mike Tobin MD, MPH [address] [place] [address] [email or web address] PCP - General Family Medicine 05/18/19 04/20/21 Mike Tobin MD, MPH [address] [place] [address] [email or web address] PCP - General Family Medicine 04/21/21 07/07/24 Mike Tobin MD, MPH [address] [place] [address] [email or web address] PCP - General Family Medicine 07/08/24 documented as of this encounter Additional Source Comments The information contained in this document represents components of the legal health record. It is not the complete legal health record.[facility]
--- OUTSIDE RECORDS SUMMARY | 2025-05-24 18:32 | XMS_ITS | Encounter Summary ---
Author Organization [facility] Address [address] [facility] [address] [place] [address] Phone Care Team Providers Care Makeup Artistry Instructor Name Role Phone Mike Tobin MD, MPH Primary Care Provider + Encounter Details Date Type Department Care Team (Late st Contact Info) Description 08/11/2024 Procedure Pass OR Admitting Dept - Virtual Department [address] [place] [address] Social History Tobacco Use Types Packs/Day Years [...] on filedocumented in this encounter Care Teams Makeup Artistry Instructor Relationship Specialty Start Date End Date Mike Tobin MD, MPH [address] [place] [id number] [email or web address] PCP - General Family Medicine 07/08/24 documented as of this encounter Additional Source Comments The information contained in this document represents components of the legal health record. It is not the complete legal health record.[facility]
--- OUTSIDE RECORDS SUMMARY | 2025-05-24 18:32 | XMS_ITS | Encounter Summary ---
Author Organization [facility] Address [address] [facility] [address] [place] [address] Phone Care Team Providers Care Broadloom Weaver Name Role Phone Mike Tobin MD, MPH Primary Care Provider + Encounter Details Date Type Department Care Team (Late st Contact Info) Description 07/22/2024 Procedure Pass OR Admitting Dept - Virtual Department [address] [place] [address] Social History Tobacco Use Types Packs/Day Years [...] as food, clothing, or medical care? No 07/22/2024 In the past 12 months have y ou been in a relationship with a person who hurts, threatens, or tries to control you? No 07/22/2024 Are you denied basic needs s uch as food, clothing, or medical care? No 07/22/2024 In the past 12 months have y ou been in a relationship with a person who hurts, threatens, or tries to control you? No 07/22/2024 Sex and Gender Information Value Date Recorded Sex Assigned at Male 12/23/2017 11:35 AM EDT Legal Sex Male 4:33 PM EDT Gender Identity Male 12/23/2017 11:35 AM EDT Sexual Orientation Straight 02/22/2022 6: 03 PM EDT documented as of this encounter Plan of Treatment Not on file documented as of this encounter Visit Diagnoses Not on filedocumented in this encounter Care Teams Broadloom Weaver Relationship Specialty Start Date End Date Mike Tobin MD, MPH [address] [place] [phone] [email or web address] PCP - General Family Medicine 07/08/24 documented as of this encounter Additional Source Comments The information contained in this document represents components of the legal health record. It is not the complete legal health record.[facility]
--- OUTSIDE RECORDS SUMMARY | 2025-05-24 18:32 | XMS_ITS | Continuity of Care Document ---
Author Organization [place] [facility], [facility] Address [address] [place] [address] Care Team Providers Care Mail Courier Name Role Phone RAVIN BHATTI Primary Care [...] instructions recorded. Reason for Referral None Reported. Problems Name Problem SNOMED Code Status Onset Date Resolution Date Notes Provider Name and Address Organization Details Recorded Time Bilateral tinnitus 53181907877 02 Active 2017 Tinnitus, bilateral ; Note: Date Diagnosed : 08/08/2017 9:46 AM (H93.13) Not Available [facility] 4 03:19:13 Sensorine ural hearing loss of bilateral ears 559190022 Active 2017 Sensorine ural hearing loss, bilateral ; Note: Date Diagnosed : 08/08/2017 9:46 AM (H90.3) Not Available [facility] 4 03:19:13 Impacted cerumen in right ear 41075472401 20332 Active 2017 Impacted cerumen, right ear; Note: Date Diagnosed : 08/08/2017 9:46 AM (H61.21) Not Available [facility] 4 03:19:12 M ni re's disease 57306025 Active 2017 Meniere's disease, right ear; Note: Date Diagnosed : 8 5:04 PM (H81.01) Meniere 's disease, unspecifi ed ear; Note: Date Diagnosed : 08/08/2017 12:50 PM (H81.09) ; Start Date : 8 Not Available [facility] 4 03:19:13 Impacted cerumen of bilateral ears 38300756289 46308 Active 2018 Impacted cerumen, bilateral ; Note: Date Diagnosed : 01/29/2019 2:51 PM (H61.23) Not Available [facility] 4 03:19:13 Problem Notes None recorded. Procedures Surgical History Date Name Laterality Status Provider Name and Address Organization Details Recorded Time total knee replacement completed JB PARRA MD [address] [place] [address], [phone], [facility] 02/06/2024 09:08:57 Imaging Results None recorded. Procedure [...] 2 % shampoo active Medicati on ID: [id number] B rand Name: ketocona zole Sen d [...] mg tablet 08/08 completed Medicati on ID: [id number] D uration Value: 90 Brand Name: triamter [...] Updated DateTime 02/25/2025 172.72 cm 28.1 kg/m2 69010.59 g Muna Cuellar [place] - [facility] 02/25/2025 11:55:00 Social History None recorded. Functional [...] ICD10 Code Diagnosis IMO Codes Diagnosis Note [id number] JB PARRA MD [facility] on [address] [place] [address] 02/25/2025 11:25:32 02/25/2025 12:10:46 Impacted cerumen of bilateral ears [id number] 143013 H61.23 Partially impacted cerumen was removed and tolerated well. Follow-up in a year. Health Concerns Section Related Observation LastModified by Organization Detai ls LastModified Time None Recorded Concern Status LastModified by Organization Details LastModified Time None Recorded Payers Encounter Date Sequence Insurance Name Policy Number Policy Logan Covered Member ID Logan Member ID Guarantor Name 02/25/2025 1 [place] [employer] Neal Hampton Jr [id number] Neal Hampton Jr 02/25/2025 2 [facility] INDEMNITY PLAN (INDEMNITY) [id number] Neal Hampton Jr [id number] Neal Hampton Jr Notes Date Note Type Note Provider Name and Address Organization Details Recorded Time 02/25/2025 text/html ROS as noted in the HPI 84-year-old male has a history of right-sided M ni re's disease and Parkinson's. He has been on Dyazide. He used to wear binaural amplification. He was last seen a year ago. JB PARRA MD [address] [place] [address], [phone], [place] [facility] 02/25/2025 13:00:43
--- OUTSIDE RECORDS SUMMARY | 2025-05-24 18:32 | XMS_ITS | Encounter Summary ---
Author Organization [facility] Address [address] [place] [address] Care Team Providers Care Communications Controller Name Role Phone Mike Tobin MD Primary Care Provider [phone] Encounter Details Date Type Department Care Team (Late st Contact Info) Description 10/16/2024 Lab Requisition [facility] - Main Lab [address] [facility] [place] [address] Say Louie MD [address] [place] [address] Hematuria, unspecified Social History Tobacco Use Types Packs/Day Years [...] Procedure Name Priority Date/Time Associated Diagnosis Comments CULTURE URINE Routine 10/16/2024 10:25 AM EDT Hematuria, unspecified documented in this encounter Results * Culture urine (10/16/2024 10:25 AM EDT) Culture, Urine 50,000-99,000 CFU/mL Mixed urogenital olivia, no uropathogens present. Suggest repeat specimen if clinically indicated. 10/17/2024 8:56 AM EDT [facility] Urine Urine specimen from urethra / Unknown 10/16/2024 10:25 AM EDT 10/16/2024 1:38 PM EDT us Say Louie MD LAB MICROBIOLOGY - GENERAL ORDER BRETT Final Result [facility] LAB [address] [place] [address], documented in this encounter Visit Diagnoses Diagnosis Hematuria, unspecified documented in this encounter Care Teams Communications Controller Relationship Specialty Start Date End Date Mike Tobin MD [address] [place] [phone] PCP - General Family Medicine 07/29/24 documented as of this encounter
--- OUTSIDE RECORDS SUMMARY | 2025-05-24 18:32 | XMS_ITS | Encounter Summary ---
Author Organization [facility] Address [address] [facility] [address] [place] [address] Phone Care Team Providers Care Online Activist Name Role Phone Mike Tobin MD, MPH Primary Care Provider + Mike Tobin MD, MPH Primary Care Provider + Mike Tobin MD, MPH Primary Care Provider + Encounter Details Date Type Department Care Team (Late st Contact Info) Description 06/24/2019 Procedure Pass OR Admitting Dept - Virtual Department [address] [place] [address] Social History Tobacco Use Types Packs/Day Years [...] documented as of this encounter Care Teams Online Activist Relationship Specialty Start Date End Date Mike Tobin MD, MPH [address] [place] [address] [email or web address] PCP - General Family Medicine 05/18/19 04/20/21 Mike Tobin MD, MPH [address] [place] [address] [email or web address] PCP - General Family Medicine 04/21/21 07/07/24 Mike Tobin MD, MPH [address] [place] [address] [email or web address] PCP - General Family Medicine 07/08/24 documented as of this encounter Additional Source Comments The information contained in this document represents components of the legal health record. It is not the complete legal health record.[facility]
--- OUTSIDE RECORDS SUMMARY | 2025-05-24 18:32 | XMS_ITS | Encounter Summary ---
Author Organization [facility] Address [address] [facility] [address] [place] [address] Phone Care Team Providers Care Chimney Repairer Name Role Phone Mike Tobin MD, MPH Primary Care Provider + Mike Tobin MD, MPH Primary Care Provider + Mike Tobin MD, MPH Primary Care Provider + Mike Tobin MD, MPH Primary Care Provider + Encounter Details Date Type Department Care Team (Late st Contact Info) Description 06/05/2018 Ancillary Orders Virtual Department [address] [place] [address] Hari Freed MD [address] [place] [address], [place] [address] Kidney stone Social History Tobacco Use Types Packs/Day Years [...] encounter Results * XR ABDOMEN 1 VIEW (07/15/2018 9:04 AM EST) Anatomical Region Laterality Modality Abdomen Radiographic Lynette ging 07/15/2018 9:21 AM EST Impressions 07/15/2018 9:24 AM EST No change in calcifications overlying the right kidney. No new calcifications over either collecting system. POS [id number] Narrative 07/15/2018 9:24 AM EST Supine abdomen, single view, 2 images Compare 07/10/2017 There continue to be 2 calcifications overlying the mid to lower right kidney measuring about 5 and 7 mm overall unchanged from 07/10/2017. No new calcifications are seen over either kidney or collecting system. No bladder calculi are apparent. Unremarkable bowel gas pattern. Multilevel spinal surgery unchanged. Procedure Note Rio Frederick MD - 07/15/2018 Supine abdomen, single view, 2 images Compare 07/10/2017 There continue to be 2 calcifications overlying the mid to lower rightkidney measuring about 5 and 7 mm overall unchanged from 07/10/2017. No new calcifications are seen over either kidney or collecting system. No bladder calculi are apparent. Unremarkable bowel gas pattern. Multilevel spinal surgery unchanged. IMPRESSION: No change in calcifications overlying the right kidney. No newcalcifications over either collecting system. POS [id number] us Hari Freed MD IMG XR ABDOMEN Final Result * US Kidneys (07/15/2018 9:01 AM EST) Anatomical Region Laterality Modality Abdomen, Kidney Ultrasound 07/15/2018 12:3 0 PM EST Impressions 07/15/2018 2:58 PM EST Bilateral nephrolithiasis with one stone identified in the kidney. No significant change in a bilobed cyst with a partially calcified septation in the upper right kidney. POS - [id number] Edited by: Letitia Sterling on 07/15/2018 12:42 PM Narrative 07/15/2018 2:58 PM EST COMPARISON: Multiple prior most recent 12/17/2016, abdominal CT 07/26/2014 FINDINGS: Right kidney is normal in size measuring 11.9 x 4.8 cm. Cortical thickness and echogenicity are within normal limits. No hydronephrosis. 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 Stable subcentimeter echogenicity along a septation which corresponds with calcification on the CT. Smaller cyst in the mid kidney measures 1.7 x 1.7 x 1.4 cm. In the mid kidney, there is a 7 mm shadowing echogenic structure with twinkle artifact from a stone as seen previously. Left kidney is normal in size measuring 12.3 x 5.2 cm. Cortical thickness and echogenicity are within normal limits. No hydronephrosis. In the lower pole, there is a 6 mm shadowing echogenic structure with twinkle artifact compatible with a stone, similar to the prior exam. No focal lesions. Procedure Note Shawn Trevizo MD - 07/15/2018 COMPARISON: Multiple prior most recent 12/17/2016, abdominal CT 07/26/2014 FINDINGS: Right kidney is normal in size measuring 11.9 x 4.8 cm. Corticalthickness and echogenicity are within normal limits. No hydronephrosis.No significant interval change in a chronic large bilobed cyst arisingfrom the upper kidney which measures 7.8 x 5.6 x 6.0 cm in total. Stablesubcentimeter echogenicity along a septation which corresponds withcalcification on the CT. Smaller cyst in the mid kidney measures 1.7 x1.7 x 1.4 cm. In the mid kidney, there is a 7 mm shadowing echogenicstructure with twinkle artifact from a stone as seen previously. Left kidney is normal in size measuring 12.3 x 5.2 cm. Corticalthickness and echogenicity are within normal limits. No hydronephrosis.In the lower pole, there is a 6 mm shadowing echogenic structure withtwinkle artifact compatible with a stone, similar to the prior exam. Nofocal lesions. IMPRESSION: Bilateral nephrolithiasis with one stone identified in the kidney. No significant change in a bilobed cyst with a partially calcifiedseptation in the upper right kidney. POS - [id number] Edited by: Letitia Sterling on 07/15/2018 12:42 PM Hari Freed MD [facility] Final Result documented in this encounter Visit Diagnoses Diagnosis Kidney stone Calculus of kidney Kidney stone Calculus of kidney Kidney stone Calculus of kidney documented in this encounter Additional Health Concerns Infection Onset Date Last Indicated Resolved Time CoV-Risk 05/29/2021 05/29/2021 06/08/2021 1:23 AM EST documented as of this encounter Care Teams Chimney Repairer Relationship Specialty Start Date End Date Mike Tobin MD, MPH [address] [place] [address] [email or web address] PCP - General Family Medicine 09/12/15 05/17/19 Mike Tobin MD, MPH [address] [place] [address] [email or web address] PCP - General Family Medicine 05/18/19 04/20/21 Mike Tobin MD, MPH [address] [place] [address] [email or web address] PCP - General Family Medicine 04/21/21 07/07/24 Mike Tobin MD, MPH [address] [place] [address] [email or web address] PCP - General Family Medicine 07/08/24 documented as of this encounter Additional Source Comments The information contained in this document represents components of the legal health record. It is not the complete legal health record.[facility]
--- OUTSIDE RECORDS SUMMARY | 2025-05-24 18:32 | XMS_ITS | Encounter Summary ---
Author Organization [facility] Address [address] [place] [address] Care Team Providers Care Vfx Artist Name Role Phone Mike oTbin MD Primary Care Provider [phone] Encounter Details Date Type Department Care Team (Late st Contact Info) Description 07/10/2024 Lab Requisition [facility] - Main Lab [address] [facility] [place] [phone] Benji Baird PA [address] [place] [address] Pyuria Social History Tobacco Use Types Packs/Day Years [...] Date/Time Associated Diagnosis Comments CULTURE URINE Routine 07/10/2024 12:00 AM EST Pyuria documented in this encounter Results * (ABNORMAL) Culture urine (07/10/2024 12:00 AM EST) Culture, Urine >100,000 CFU/mL Escherichia coli(A) LEIGHANN 07/12/2024 2:24 PM EST [facility] Comment: This is an edited result. Previous organism was Gram negative bacilli on 07/11/2024 at 1315 EST. Culture, Urine 50,000-100,000 CFU/mL Citrobacter koseri(A) LEIGHANN 07/12/2024 2:24 PM EST [facility] Comment: The organism value for this result has been updated. These results have been appended to the previously preliminary verified report. Urine Urine specimen obtained by clean catch procedure / Unknown 07/10/2024 07/10/2024 7:01 PM EST Narrative Organism Antibiotic Method Susceptibility Escherichia coli Amoxicillin/Clavulanate LEIGHANN 4 ug/ml: Susceptible Escherichia coli Ampicillin/Sulbactam LEIGHANN 16 ug/ml: Intermediate Escherichia coli Piperacillin/Tazobactam LEIGHANN <=4 ug/ml: Susceptible Escherichia coli Cefazolin (Urine) LEIGHANN 4 ug/ml: Susceptible Escherichia coli Cefoxitin LEIGHANN <=4 ug/ml: Susceptible Escherichia coli Ceftazidime LEIGHANN <=0.5 ug/ml: Susceptible Escherichia coli Ceftriaxone LEIGHANN <=0.25 ug/ml: Susceptible Escherichia coli Cefepime LEIGHANN <=0.12 ug/ml: Susceptible Escherichia coli Meropenem LEIGHANN <=0.25 ug/ml: Susceptible Escherichia coli Amikacin LEIGHANN 2 ug/ml: Susceptible Escherichia coli Gentamicin LEIGHANN <=1 ug/ml: Susceptible Escherichia coli Ciprofloxacin LEIGHANN <=0.06 ug/ml: Susceptible Escherichia coli Levofloxacin LEIGHANN <=0.12 ug/ml: Susceptible Escherichia coli Trimethoprim/Sulfamethoxazole LEIGHANN <=20 ug/ml: Susceptible Citrobacter koseri Amoxicillin/Clavulanate LEIGHANN 4 ug/ml: Susceptible Citrobacter koseri Piperacillin/Tazobactam LEIGHANN <=4 ug/ml: Susceptible Citrobacter koseri Cefoxitin LEIGHANN <=4 ug/ml: Susceptible Citrobacter koseri Ceftazidime LEIGHANN <=0.5 ug/ml: Susceptible Citrobacter koseri Ceftriaxone LEIGHANN <=0.25 ug/ml: Susceptible Citrobacter koseri Cefepime LEIGHANN <=0.12 ug/ml: Susceptible Citrobacter koseri Meropenem LEIGHANN <=0.25 ug/ml: Susceptible Citrobacter koseri Amikacin LEIGHANN <=1 ug/ml: Susceptible Citrobacter koseri Gentamicin LEIGHANN <=1 ug/ml: Susceptible Citrobacter koseri Ciprofloxacin LEIGHANN <=0.06 ug/ml: Susceptible Citrobacter koseri Levofloxacin LEIGHANN <=0.12 ug/ml: Susceptible Citrobacter koseri Trimethoprim/Sulfamethoxazole LEIGHANN <=20 ug/ml: Susceptible Benji PIERCE LAB MICROBIOLOGY - GENERAL ORDER BRETT Final Result [facility] [address] [place] [address], documented in this encounter Visit Diagnoses Diagnosis Pyuria Other nonspecific finding on examination of urine documented in this encounter Care Teams Vfx Artist Relationship Specialty Start Date End Date Mike Tobin MD [address] [place] [phone] PCP - General Family Medicine 07/29/24 documented as of this encounter
--- OUTSIDE RECORDS SUMMARY | 2025-05-24 18:32 | XMS_ITS | Clinical Summary ---
Author Organization [address] Address [address] [place] [address] Phone Care Team Providers Care Retail Merchandising Specialist Name Role Phone Mike Tobin MD Primary Care Provider [phone] Social History Tobacco Use Types Packs/Day Years Used Date Smoking Tobacco: Never Assessed Sex and Gender Information Value Date Recorded Sex Assigned at Not on file Legal Sex Male 1:32 PM EDT Gender Identity Not on file Sexual Orientation Not on file Plan of Treatment Health Maintenance Due Date Last Done Comments DTaP,Tdap,and Td Vaccines (1 - Tdap) 1959 Pneumococcal Vaccine: 50+ Ye ars (1 of 1 - PCV) 1988 Zoster Vaccines (1 of 2) 1988 RSV Immunization Adult Patie nts (1 - 1-dose 75+ series) 2013 Cholesterol Screening (Lipid Panel) 01/10/2024 Falls Risk Assessment 01/10/2024 Medicare Annual Wellness Visit 01/10/2024 Social Influencers of Health Screening 01/10/2024 Depression Screening 06/10/2024 COVID-19 Vaccine ( - 2024-2 6 season) 2025 Influenza Vaccine (#1) 2025 HIB Vaccines Aged Out No longer eligi ble based on patient's age to complete this topic HPV Vaccines Aged Out No longer eligi ble based on patient's age to complete this topic Hepatitis A Vaccines Aged Out No long er eligible based on patient's age to complete this topic Hepatitis B Vaccines Aged Out No long er eligible based on patient's age to complete this topic IPV Vaccines Aged Out No longer eligi ble based on patient's age to complete this topic MMR Vaccines Aged Out No longer eligi ble based on patient's age to complete this topic Meningococcal ACWY Vaccine Aged Out N o longer eligible based on patient's age to complete this topic Meningococcal B Vaccine Aged Out No l onger eligible based on patient's age to complete this topic RSV Immunization Patients Un eugenio 20 months Aged Out No longer eligible b ased on patient's age to complete this topic Varicella Vaccines Aged Out No longer eligible based on patient's age to complete this topic Insurance MEDICARE [facility] Care Teams Retail Merchandising Specialist Relationship Specialty Start Date End Date Mike Tobin MD [address] [place] [phone] PCP - General Family Medicine 07/29/24
--- OUTSIDE RECORDS SUMMARY | 2025-05-24 18:32 | XMS_ITS | Clinical Summary ---
Author Organization [facility] Address [address] [facility] [address] [place] [address] Phone Care Team Providers Care Karate Black Belt Name Role Phone Mike Tobin MD, MPH Primary Care Provider + Allergies Active Allergy Reactions Criticality Noted Date Comments Levaquin (Levofloxacin) 10/05/2015 High fever Penicillin Anaphylaxis High 11/08/2017 Tolerates cephalosporins Medications finasteride (PROSCAR) 5 mg tablet Take 1 tablet (5 mg total) by mouth daily. 4 Active acetaminophen (TYLENOL) 325 mg tablet Take 2 tablets (650 mg total) by mouth every 6 (six) hours as needed. 0 4 Active aspirin 81 mg chewable tablet Take 1 tablet (81 mg total) by mouth daily. 4 Active Additional Information Patient not taking.Informant: Super[employer], Reported on 07/22/2024 atorvastatin (LIPITOR) 40 MG tablet Take 1 tablet (40 mg total) by mouth nightly at bedtime. 4 Active insulin glargine (LANTUS) 100 unit/mL injection vial Inject 10 Units under the skin nightly at bedtime. 4 Active Additional Information Patient not taking.Informant: Self, Reported on 07/22/2024 insulin lispro (ADMELOG, HUMALOG) 100 unit/mL injection vial Inject 0-12 Units under the skin 3 (three) times a day with meals. 4 Active Additional Information Patient not taking.Informant: Self, Reported on 07/22/2024 melatonin 3 mg Tab Take 1 tablet (3 mg total) by mouth nightly at bedtime as needed. 0 4 Active Additional Information Patient not taking.Informant: Self, Reported on 09/02/2024 omeprazole (PRILOSEC) 40 MG capsule Take 1 capsule (40 mg total) by mouth 2 (two) times a day before meals. Take 40mg twice daily through 12/05/23, then 20mg daily thereafter 4 Active Additional Information Patient not taking.Reported on 07/16/2024 sucralfate (CARAFATE) 1 gram tablet Take 1 g by mouth 4 (four) times a day. 4 Active simvastatin (ZOCOR) 40 MG tablet Take 40 mg by mouth nightly at bedtime. Take 1 tablet by mouth every day 4 Active pantoprazole (PROTONIX) 40 MG tablet Take 40 mg by mouth daily. Take 1 tablet by mouth twice a day before meals 4 Active lisinopril (PRINIVIL,ZESTR IL) 20 MG tablet Take 20 mg by mouth daily. Take 1 tablet by mouth every day 4 Active carbidopa-levod opa (SINEMET) 25-100 mg per tablet TAKE 3 TABLETS BY MOUTH 3 (THREE) TIMES A DAY. 810 tablet 3 4 Active sulfamethoxazol e-trimethoprim (BACTRIM DS) 800-160 mg per tablet Take 1 tablet (160 mg of trimethoprim total) by mouth 2 (two) times a day. 2 tablet 5 Active Additional Information Patient not taking.Reported on 09/02/2024 sulfamethoxazol e-trimethoprim (BACTRIM DS) 800-160 mg per tablet Take 1 tablet (160 mg of trimethoprim total) by mouth 2 (two) times a day. 2 tablet 5 Active Additional Information Patient not taking.Reported on 09/02/2024 sulfamethoxazol e-trimethoprim (BACTRIM DS) 800-160 mg per tablet Take 1 tablet (160 mg of trimethoprim total) by mouth 2 (two) times a day. 2 tablet 5 Active Active Problems Problem Noted Date Diagnosed Date Gastric outlet obstruction 10/02/2023 Overview (10/02/2023): Due to paraesophageal hernia -GI consulted, performed EGD, indicated that patient has diffuse gastric bleeding due to potentially compromised gastric blood supply. Requires intervention from surgery. SVT (supraventricular tachycardia) 10/02/2023 Hyperkalemia 10/02/2023 Acute blood loss anemia 10/02/2023 Shock 10/02/2023 Metabolic acidosis 10/02/2023 DM (diabetes mellitus) 09/28/2023 Assessment & Plan (09/29/2023 11:09 AM EDT): Unclear when was diagnosed per chart review - previously had been prediabetic, A1c is 7.1 Basal insulin with TPN increased further to 37 u 09/27, q6 hr pocc/iss with standing order for lispro as well, inc to 8 units 09/27 Volume overload 09/22/2023 Sepsis with acute hypoxic re spiratory failure without septic shock 09/17/2023 Aspiration pneumonia 09/17/2023 Assessment & Plan (09/29/2023 11:11 AM EDT): Recently treated aspiration pna, seen by pulm, was in ICU intubated for several days, completed abx Aspiration risk remains high, INSTRUMENT INSPECTOR following, NPO for now pending repeat swallow study next week, study from 09/26 showing a lot of pharyngeal swelling and aspiration if food was able to get by. Nothing to do for swelling per icu, ct TPN, discussed with INSTRUMENT INSPECTOR and nutrition. No pills either for now, 1 ice chip at a time, only few to be left at bedside. Family understands plan. Acute hypoxemic respiratory failure 09/17/2023 Paralytic ileus 09/17/2023 Paroxysmal atrial fibrillation 09/17/2023 Assessment & Plan (09/29/2023 11:19 AM EDT): He had not been on AC previously, c2v2 is 4 so high risk In ICU notes regarding amio drip use which was stopped but no other hx noted Today in Afib with RVR, will start IV lopressor as NPO, monitor BP, holding hydralazine which we were using instead of his usual po meds. Inc to full dose lovenox for now, probably a better candidate for eliquis when able to take po BPH (benign prostatic hyperplasia) 09/16/2023 Assessment & Plan (09/26/2023 3:55 PM EDT): Sharif in place, holding his oral meds. Hypertension 09/16/2023 Assessment & Plan (09/29/2023 11:08 AM EDT): Po agents held, starting IV lopressor today Abdominal distension 09/15/2023 Assessment & Plan (09/29/2023 11:17 AM EDT): -Ileus on admit was in ICU with aspiration pna, and noted again 09/25 but then bm for 2 days, has not had a movement until 09/26, repeat CT at that time not concerning for obstruction, vomiting last night after drinking melted ice chips has resolved, ct strict NPO, if any further vomiting, need to contact shon as well need special consideration for any NGT placement with unique GI anatomy ( prev tubes required GI/IR placement), belly has remained distended, order kub for am -Ct dulcolax suppositories for a few days -Appreciate surgery following along -alk phos has been high but better than previous. -remains on TPN until repeat MBS next week per speech ( awaiting some pharyngeal swelling to improve- theorized that some of this related to OT/OG tubes while in ICU) Hyponatremia 09/15/2023 Osteoarthritis 10/31/2017 Generalized muscle weakness 10/30/2017 Mixed hyperlipidemia 10/30/2017 Lumbar stenosis 10/12/2015 Right carpal tunnel syndrome Left carpal tunnel syndrome Resolved Problems Problem Noted Date Diagnosed Date Resolved Date Atrial fibrillation with RVR 10/09/2023 10/09/2023 GI bleed 10/03/2023 10/09/2023 Assessment & Plan (10/08/2023 3:38 AM EDT): Neuro: #Parkinson's - continue home Sinemet #Pain - Tylenol PRN Resp: #hypoxic respiratory failure #recurrent aspiration - Extubated 09/23, Re-intubated for endoscopy 10/01 and 10/02, extubated 10/03 - Currently RA CV: #Hypotension/shock (likely hypovolemia vs sedation related vasodilation) - 09/17 TTE: normal biVent size/function, no sig valvular disease - MAP >65 - Off pressors s/p extubation #New onset AFib w/ RVR Back in NSR - Likely iso critical illness, CAD-VASC 4 - Not currently on rate/rhythm control - Defer long-term AC to PCP team following 2-week zio patch to determine if any paroxysmal AFib burden GI: #gastrointestinal bleed - likely upper #hematemesis #melena 10/01 [facility] EGD: large paraesophageal hiatal hernia with diffuse bleeding from potentially ischemic mucosa in the stomach and red blood in the entire stomach 10/02 [facility] EGD: no signs of ischemia or active bleeding 10/06 - Omeprazole 40 mg BID long-term - Appreciate GI recs #paraesophageal hernia - Thoracic consult given recurrent aspirations- no intervention needed #nutrition - Advance diet to Easy to Chew w/ thins - 10/05 INSTRUMENT INSPECTOR eval: ok to advance to dysphagia diet, easy to chew with thins - nutrition consult PRN Renal: baseline Cr 0.5-0.7 now 0.46 #CHEN - resolved, likely post-obstructive from blocked sharif - I/O - Voiding Heme:8.10/02 from .11/02.8 #GI Bleed - Hgb >7 - Heparin SubQ ID: - 10/02 RCx growing few staph aureus and rare citrobacter koser - No fevers, cough or SOB - No further antibiosis - s/p empiric ceftriaxone, Flagyl (10/01 - 10/03) and Vancomycin (10/02-10/03) #Enterococcus aspiration PNA - Treated - completed 7d course at OSH of ceftriaxone and flagyl for enterococcus PNA Endocrine: A1c is 7.1 - mod RISS - 15u lantus at night (takes 32u lantus at home) Prophylaxis: - DVT: Mechanical - Pneumoboots - Chemical - N/A - GI:Protonix Dispo: ICU CHEN (acute kidney injury) 09/17/2023 Vomiting 09/16/2023 09/22/2023 Parkinson's disease 09/16/2023 10/09/19 Assessment & Plan (10/09/2023 10:24 AM EDT): #Parkinson's Disease Tx: - continue Sinemet Assessment & Plan (09/26/2023 3:51 PM EDT): Sinemet ordered but on hold with aspiration risk. 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, subsequent encounter 10/30/2017 09/22/2023 Immunizations Immunization Administration Dates Next Due COVID-19 (Pre-04/01) Pfizer Vaccine, mRNA, PF ,07/14/2020 Td (adult) 5 Lf Tetanus Toxoid, PF, Adsorbed 06/2009 Tdap 12/01/2019,11/25/2019 Family History Medical History Relation Comments Cerebrovascular disease Father CVA Prostate cancer Father Relation Status Comments Father (Age 81) Social History Tobacco Use Types Packs/Day Years Used Date Smoking Tobacco: Never Smokeless Tobacco: Never Tobacco Cessation:Counseling Given: Not Answered Alcohol Use Standard Drinks/Week Comments Never 0 [...] Orientation Straight 02/22/2022 6: 03 PM EDT Last Filed Vital Signs Vital Sign Reading Time Taken Comments Blood Pressure 122/75 09/08/2024 3:07 PM EDT Pulse 90 09/08/2024 3:08 PM EDT Temperature 36.3 C (97.3 F) 09/08/2024 3:07 PM EDT Respiratory Rate 15 09/08/2024 3:08 PM EDT Oxygen Saturation 96% 09/08/2024 3:0 8 PM EDT Inhaled Oxygen Concentration 40% 10/04/2023 3:35 PM EDT Simultaneous filing. User may not have seen previous data. Weight 83.9 kg (185 lb) 09/02/2024 9:06 AM EDT Height 172.7 cm (5' 8 ) 09/02/2024 9:06 AM EDT Body Mass Index 28.13 09/02/2024 9:06 AM EDT Plan of Treatment Health Maintenance Due Date Last Done Comments DEPRESSION SCREENING 1950 ZOSTER VACCINES (1 of 2) 1988 RSV VACCINE (1 - 1-dose 75+ series) 2013 PNEUMOCOCCAL VACCINES (50+ years) (2 of 2 - PCV) 11/29/2021 11/29/2020 DIABETIC EYE EXAM 09/28/2023 HEMOGLOBIN A1C 03/30/2024 09/29/2023 INFLUENZA VACCINE (#1) 2025 , 07/23/2023, 05/09/2022, Additional history exists COVID-19 VACCINE ( season) 2025 04/22/2022, 04/22/2022, 04/26/2021, Additional history exists CREATININE LEVEL 07/22/2025 07/22/2024, 08/2023, 10/10/2023, Additional history exists POTASSIUM LEVEL 07/22/2025 07/22/2024, 05/0 08/2023, 10/10/2023, Additional history exists Adult Td,Tdap Booster 11/30/2029 12/01/2019 , 11/25/2019, 04/10/2010 HEPATITIS A VACCINES Aged Out No long er eligible based on patient's age to complete this topic HIB VACCINES Aged Out No longer eligi ble based on patient's age to complete this topic MENINGOCOCCAL VACCINES (ACWY) Aged Out No longer eligible based on patient's age to complete this topic MENINGOCOCCAL VACCINES (B) Aged Out N o longer eligible based on patient's age to complete this topic Medical Devices Implanted Type Area Med Asst Device Identifier Shelf Expiration Date Model / Serial / Lot Knee Back Pins Dental Stent Ureteral 7frx22 To 30cm Double Pigtail Suture Stretch Positioner - [id number] Implanted:Qty: 1 on 07/22/2024 by Say Louie MD at [facility] Right: Ureter [employer] 02/16/2027 185-157 / / [id number] Stent Ureteral 7frx22 To 30cm Double Pigtail Suture Stretch Positioner - [id number] Implanted:Qty: 1 on 07/22/2024 by Say Louie MD at [facility] Left: Ureter [employer] 02/16/2027 185-157 / / [id number] Stent Ureteral 7frx22 To 30cm Double Pigtail Suture Stretch Vl Positioner - [id number] Implanted:Qty: 1 on 08/11/2024 by Say Louie MD at [facility] Left: Ureter [employer] [id number] 01/03/2026 185-157 / / [id number] Stent Ureteral 7frx22 To 30cm Double Pigtail Suture Stretch Vl Positioner - [id number] Implanted:Qty: 1 on 08/11/2024 by Say Louie MD at [facility] Right: Ureter [employer] [id number] 02/16/2027 185-157 / / [id number] Stent Ureteral 7frx22 To 30cm Double Pigtail Suture Stretch Positioner - [id number] Implanted:Qty: 1 on 09/08/2024 by Say Louie MD at [facility] Right: Ureter [employer] 02/16/2027 185-157 / / [id number] Stent Ureteral 7frx22 To 30cm Double Pigtail Suture Stretch Vl Positioner - [id number] Implanted:Qty: 1 on 09/08/2024 by Say Louie MD at [facility] Left: Ureter [employer] [id number] 02/16/2027 185-157 / / [id number] Procedures Procedure Name Priority Date/Time Associated Diagnosis Comments BASIC METABOLIC PANEL (BMP) STAT 07/22/2024 12:47 PM EST HEMOGLOBIN A1C Routine 09/29/2023 4:50 AM EDT from Last 3 Months or Most Recently Relevant to Health Maintenance Results * (ABNORMAL) Basic metabolic panel (07/22/2024 12:47 PM EST) SODIUM 139 133 - 146 mmol/L [facility] CHLORIDE 104 96 - 108 mmol/L [facility] POTASSIUM 4.1 3.3 - 5.1 mmol/L [facility] CO2 23 21 - 35 mmol/L [facility] BUN 20(H) 6 - 19 mg/dL [facility] CREATININE 0.60 0.5 - 1.5 mg/dL [facility] GLUCOSE 112(H) 70 - 99 mg/dL [facility] CALCIUM 8.9 8.4 - 10.3 mg/dL [facility] EGFR 95 >59 mL/min/1.7 3m2 [facility] Comment:Estimated glomerular filtration rate calculated using the CKD-EPI refit equation. ANION GAP 16 10 - 20 mmol/L [facility] Blood 07/22/2024 12:4 7 PM EST 07/22/2024 12:50 PM EST us Say Louie MD LAB BLOOD BKR ORDERABLES Final Result [facility] [address] [place] [address] * (ABNORMAL) Hemoglobin A1c (09/29/2023 4:50 AM EDT) HEMOGLOBIN A1C 7.1(H) 4.3 - 5.8 % [facility] Blood 09/29/2023 4:50 AM EDT 09/29/2023 7:41 AM EDT us Prasad Stovall DO, MPH LAB BLOOD BKR ORDERABLES F inal Result [address] [address] from Last 3 Months or Most Recently Relevant to Health Maintenance Insurance MEDICARE PART A & B [facility] MEDICARE SUPPLEMENT MEDICARE PART A & B [employer] MEDICARE SUPPLEMENT MEDICARE PART A & B MEDICARE SUPPLEMENT MEDICARE PART A & B [employer] MEDICARE SUPPLEMENT MEDICARE PART A & B [employer] MEDICARE SUPPLEMENT MEDICARE PART A & B [employer] MED[employer]ARE SUPPLEMENT MEDICARE PART A & B [employer] MEDICARE SUPPLEMENT MEDICARE PART A & B [facility] MEDICARE SUPPLEMENT MEDICARE PART A & B [facility]IC[facility] SUPPLEMENT Advance Directives For more information, please contact: [phone] (9AM - 5PM [facility], Saturday-Saturday) Documents on File Type Date Recorded Patient Crisis Specialist Expl anation Healthcare Proxy 10/03/2023 12:35 PM Durable Power of Accountant Manager 10/15/2015 10:32 AM Healthcare Proxy 10/12/2015 7:16 AM HC PROX Y * Full Code (Latest Code Status on File) Date Activated Date Inactivated Comments 10/03/2023 12:51 AM Question Answer Comments Code Status Confirmed With: Other (specify below ) * Full Code Date Activated Date Inactivated Comments 10/02/2023 2:16 PM 10/03/2023 12:51 AM Question Answer Comments Code Status Confirmed With: Other (specify below ) * Full Code Date Activated Date Inactivated Comments 09/15/2023 7:49 PM 10/02/2023 2:16 PM Question Answer Comments Code Status Confirmed With: Patient * Full Code (Presumed) Date Activated Date Inactivated Comments 06/24/2019 7:26 AM 06/24/2019 12:07 PM * Full Code (Presumed) Date Activated Date Inactivated Comments 05/13/2019 9:49 AM 05/13/2019 4:58 PM Healthcare Agents on File Name Relationship Healthcare Agent Relationshi p Communication Nikki Barrett Daughter Alternate Health care Agent (Proxy form on file) Care Teams Karate Black Belt Relationship Specialty Start Date End Date Mike Tobin MD, MPH [address] [place] [id number] [email or web address] PCP - General Family Medicine 07/08/24 Additional Source Comments The information contained in this document represents components of the legal health record. It is not the complete legal health record.[facility]
--- OUTSIDE RECORDS SUMMARY | 2025-05-24 18:32 | XMS_ITS | Encounter Summary ---
Author Organization [facility] Address [address] [place] [address] Care Team Providers Care Roving Marker Name Role Phone Mike Tobin MD Primary Care Provider [phone] Encounter Details Date Type Department Care Team (Late st Contact Info) Description 07/29/2024 Lab Requisition [facility] - Main Lab [address] [facility] [address] Say Louie MD [address] [place] [address] Gross hematuria Social History Tobacco Use Types Packs/Day Years [...] Date/Time Associated Diagnosis Comments CULTURE URINE Routine 07/29/2024 12:00 AM EST Gross hematuria documented in this encounter Results * Culture urine (07/29/2024 12:00 AM EST) Culture, Urine No growth 07/30/2024 1:31 PM EST [facility] Urine Urine specimen obtained by clean catch procedure / Unknown 07/29/2024 07/29/2024 6:29 PM EST us Say Louie MD LAB MICROBIOLOGY - GENERAL ORDER BRETT Final Result [facility] [address] [place] [address], documented in this encounter Visit Diagnoses Diagnosis Gross hematuria documented in this encounter Care Teams Roving Marker Relationship Specialty Start Date End Date Mike Tobin MD [address] [place] [id number] PCP - General Family Medicine 07/29/24 documented as of this encounter
== END 2025-05-24 13:38 | disposition home or self-care (01) ==
LOC: HO.HSMS 12:50
PROVIDERS: Visit Provider Psychiatry & Neurology Neurology
DX: G20.A1 Parkinson's disease without dyskinesia, without mention of fluctuations (principal)
CPT/HCPCS: 99214; G2211

== ENCOUNTER → 2025-05-24 12:50 | Outpatient (BNVA) | payer MEDICARE, OTHER, SELFPAY | PROVIDERS: Visit Provider Psychiatry & Neurology Neurology | DX: G20.A1 Parkinson's disease without dyskinesia, without mention of fluctuations (principal) | CPT/HCPCS: 99212 ==